=== PATIENT | male | born 1965 | race Caucasian/White ===

== ENCOUNTER 2025-07-16 23:33 | Emergency (ER) | payer OTHER, SELFPAY ==
[2025-07-16 23:37] VITALS: PULSE 93
[2025-07-16 23:38] VITALS: BP 103/66; PULSE 92; PULSE 96; TEMP 37.5; O2SAT 97; BMI 29.8
[2025-07-16 23:40] VITALS: BP 103/66; PULSE 96; O2SAT 97
--- NOTE | 2025-07-16 23:47 | ECG_ITS ---
[facility] Test Date: 2025-07-16 Pat Name: FIDEL DEE Department: Room: - Gender: Male Methods And Procedures Analyst: : 1965 Requested By: [id number] Order Number: [id number] Reading MD: DARRICK SHAVER Measurements Intervals [place] Rate: 92 P: 30 ND: 128 QRS: 38 QRSD: 100 T: 50 QT: 370 QTc: 419 Interpretive Statements 1100 Sinus rhythm 2420 RSR (QR) in lead V1/V2, consistent with right ventricular conduction delay 9130 borderline ECG No previous ECG available for comparison Electronically Signed On 07-20-2025 13:30:54 EDT by DARRICK SHAVER
--- NOTE | 2025-07-16 23:48 | ED.SYNCOPE1 ---
HPI - Syncope General Chief Complaint: Syncope Stated Complaint: Syncope Time Seen by Provider: 07/16/25 23:46 Source: patient Mode of arrival: ambulance Limitations: no limitations History of Present Illness HPI narrative: history of autoimmune hepatitis. Managed at [facility]. Recent flare and states he was started on prednisone. ill today with rigor type chills.Tonight preparing to go up stairs to bed and became weak . states she ran up to him at the stair way where he was standing and not moving. she lowered him to the ground. He woke up after about one minute and was very diaphoretic and vomited. Squad arrived and BP systolic 50. Treated with IV fluids and transferred here. Arrives with BP 103/66. No complaint at this time. Feels much better than he did at home. No chest pain, abdominal pain or dyspnea Related Data Home Medications ?Medication ?Instructions ?Recorded ?Confirmed prednisone 20 mg tablet 40 mg PO DAILY 07/16/25 07/16/25 Allergies Allergy/AdvReac Type Severity Reaction Status Date / Time No Known Drug Allergies Allergy Verified 07/16/25 23:46 Review of Systems ROS Status of ROS 10 or more systems reviewed and unremarkable except as noted in history and below PFSH PFSH Social History Little interest or pleasure in doing things: not at all Feeling down, depressed, or hopeless: not at all Exam Constitutional Vital Signs, click to edit/add: Last Vital Signs Temp 98.9 F 07/17/25 03:40 Pulse 108 H 07/17/25 04:45 Resp 20 07/17/25 04:45 BP 130/83 07/17/25 04:45 Pulse Ox 95 07/17/25 04:45 O2 Del Method Room Air 07/17/25 03:40 Common normals: no apparent distress, average body habitus, oriented x3, no limitations, healthy appearing, alert and well nourished [facility] Common normals: normocephalic and head/scalp atraumatic Eye Common normals: PERRL and EOMs intact bilaterally Respiratory Common normals: normal respiratory effort, no retractions, no use of accessory muscles and clear to auscultation bilaterally Cardio Common normals: regular rate, regular rhythm, S1 normal heart sound and S2 normal heart sound GI Common normals: Normal to inspection, nondistended, normoactive bowel sounds present, soft to palpation and non-tender Extremity Common normals: normal to inspection and full ROM Neuro Common normals: oriented x3, CN's II-XII intact bilaterally, moves all extremities and no focal motor deficits Psych Appearance: grossly normal Course Vital Signs Vital signs: Vital Signs Pulse Rate 93 H 07/16/25 23:37 Respiratory Rate 16 07/16/25 23:37 Temperature 98.9 F 07/17/25 03:40 Pulse Rate 108 H 07/17/25 04:45 Respiratory Rate 20 07/17/25 04:45 Blood Pressure 130/83 07/17/25 04:45 Pulse Oximetry 95 07/17/25 04:45 Oxygen Delivery Method Room Air 07/17/25 03:40 MDM - Syncope MDM Narrative Medical decision making narrative: history of autoimmune hepatitis. Recent flare manifested by elevated T. bili and jaundice. Started on Prednisone 40mg daily which he has been on for past week. At home experienced episodes of Rigors. Uncontrollable shaking chills. Was planning to go upstairs to bed. Got to the stairway and was just standing there. came over and found blank stare on his face and help lower him to the ground. He was unresponsive for about 1 minute. Woke up and was diaphoretic and vomited. Squad found BP 50/30. IVF administered and patient did respond to fluids and by the time he arrived here his BP systolic was 103. Additional IVF ordered but despite this his BP systolic decreased to 70/40. Blood cultures ordered. Norepinephrine drip started at 8mcg. Patient also given Vanco and Zosyn to cover for expected sepsis. Latic acid elevated at 4.0. UA returned without evidence of infection. Cxray with cardiomegaly but no infiltrates. T. Bili 8.7. AST 113 and ALT normal at 55. Alk phos 198. He is also intoxicated with ETOH 174. No outward sign of intoxication. He is cooperative with clear speech. INR pending. Discussed with hospitalist Dr Pizarro here at [facility] and he feels the patient needs to be transferred. Hospitalist at [facility] paged Discussed with sheet music salesperson and patient accepted in transfer Lab Data Labs: Lab Results 07/16/25 07/17/25 07/17/25 Range/Units 23:50 02:50 03:51 WBC 6.1 (4.0-11.0) 10^3/uL RBC 3.37 L (4.70-6.10) 10^6/uL Hgb 11.2 L (14.0-18.0) g/dL Hct 33.4 L (42.0-54.0) % MCV 99.1 H (80.0-94.0) fL MCH 33.2 (25.9-34.0) pg MCHC 33.5 (29.9-35.2) g/dL RDW 15.2 H (11.0-15.0) % Plt Count 78 L (150-450) 10^3/uL MPV 11.4 (9.5-13.5) fL Seg Neuts % (Manual) 91.0 H (43.0-75.0) Band Neutrophils % 2.0 (0-5) % Lymphocytes % (Manual) 5.0 L (20.5-60.0) % Monocytes % (Manual) 2.0 (1.7-12.0) % Eosinophils % (Manual) 0.0 L (0.9-7.0) % Basophils % (Manual) 0.0 L (0.2-2.0) % Neutrophils # (Manual) 5.55 (1.4-6.5) 10^3/uL Band Neutrophils # 0.1 (0.0-0.3) 10^3/uL Lymphocytes # (Manual) 0.30 L (1.20-3.80) 10^3/uL Monocytes # (Manual) 0.12 L (0.30-0.80) 10^3/uL Eosinophils # (Manual) 0.00 (0.00-0.70) 10^3/uL Basophils # (Manual) 0.00 (0.00-0.10) 10^3/uL Sodium 141 (136-145) mmol/L Potassium 3.1 L (3.5-5.1) mmol/L Chloride 105 (98-107) mmol/L Carbon Dioxide 22.0 (21.0-32.0) mmol/L Anion Gap 17.1 BUN 15.0 (7.0-18.0) mg/dL Creatinine 0.98 (0.70-1.30) mg/dL Est GFR ( Amer) >60 (>=60 mL/min/1.73m^2) Est GFR (Non-Af Amer) >60 (>=60 mL/min/1.73m^2) BUN/Creatinine Ratio 15.3 Glucose 81 (74-106) mg/dL Lactate 4.0 H* 3.9 H* (0.4-2.0) mmol/L Calcium 7.8 L (8.5-10.1) mg/dL Total Bilirubin 8.7 H (0.2-1.0) mg/dL AST 113 H (15-37) U/L ALT 55 (16-63) U/L Alkaline Phosphatase 198 H (46-116) U/L Troponin I High Sens 37.8 (4.0-76.1) pg/mL Total Protein 5.9 L (6.4-8.2) g/dL Albumin 2.6 L (3.4-5.0) g/dL Globulin 3.3 g/dL Albumin/Globulin Ratio 0.8 Urine Color Dk orange A (YELLOW) Urine Clarity Clear (CLEAR) Urine pH 5.5 (5.0-9.0) Ur Specific [place] <=1.005 A (1.005-1.025) Urine Protein Trace (NEG/TRACE) mg/dL Urine Glucose (UA) Negative (NEGATIVE) mg/dL Urine Ketones Trace A (NEGATIVE) mg/dL Urine Occult Blood Negative (NEGATIVE) Urine Nitrite Negative (NEGATIVE) Urine Bilirubin Moderate A (NEGATIVE) Urine Urobilinogen 1.0 (0.2-1.0) EU/dL Ur Leukocyte Esterase Negative (NEGATIVE) Urine RBC None seen (0-2) #/HPF Urine WBC 2-5 A (NONE SEEN) #/HPF Ur Squamous Epith Cells Rare (NONE/RARE) #/LPF Urine Crystals None seen (None Seen) #/HPF Urine Bacteria Trace A (NONE SEEN) #/HPF Urine Casts Seen A (NONE SEEN) #/LPF Hyaline Casts Few Urine Mucus None seen (NONE SEEN) Ur Culture Indicated? No Ethanol Quant 174 mg/dL Discharge Plan Discharge Chief Complaint: Syncope Clinical Impression: Syncope, Sepsis, Autoimmune hepatitis Patient Disposition: General Acute Hospital
[2025-07-16 23:50] VITALS: PULSE 98; O2SAT 98
[2025-07-17] VITALS (75 sets, daily range): BP systolic 70–145; BP diastolic 40–99; PULSE 93–126; TEMP 37–37.2; O2SAT 91–98
[2025-07-17 00:19] LABS: Hematocrit 33.4 % (42.0-54.0); Hemoglobin 11.2 g/dL (14.0-18.0); Mean Corpuscular HGB Conc 33.5 g/dL (29.9-35.2); Mean Corpuscular Hemoglobin 33.2 pg (25.9-34.0); Mean Corpuscular Volume 99.1 fL (80.0-94.0); Platelet Count 78 10^3/uL (150-450); Red Blood Count 3.37 10^6/uL (4.70-6.10); White Blood Count 6.1 10^3/uL (4.0-11.0)
[2025-07-17 00:31] LABS: Alanine Aminotransferase 55 U/L (16-63); Albumin Globulin Ratio 0.8; Albumin Level 2.6 g/dL (3.4-5.0); Alkaline Phosphatase 198 U/L (46-116); Anion Gap 17.1; Aspartate Amino Transferase 113 U/L (15-37); Blood Urea Nitrogen 15.0 mg/dL (7.0-18.0); Calcium 7.8 mg/dL (8.5-10.1); Carbon Dioxide 22.0 mmol/L (21.0-32.0); Chloride 105 mmol/L (98-107); Estimated GFR (African America >60 (>=60 mL/min/1.73m^2); Estimated GFR (Non-African Ame >60 (>=60 mL/min/1.73m^2); Globulin 3.3 g/dL; Glucose 81 mg/dL (74-106); Potassium 3.1 mmol/L (3.5-5.1); Sodium 141 mmol/L (136-145)
[2025-07-17 00:38] LABS: Total Protein 5.9 g/dL (6.4-8.2)
[2025-07-17 00:39] LABS: Lactate/Lactic Acid 4.0 mmol/L (0.4-2.0)
[2025-07-17 00:48] LABS: Basophils Abs Manual 0.00 10^3/uL (0.00-0.10); Basophils Percent Manual 0.0 % (0.2-2.0); Eosinophils Absolute Manual 0.00 10^3/uL (0.00-0.70); Eosinophils Percent Manual 0.0 % (0.9-7.0); Lymphocytes Absolute Manual 0.30 10^3/uL (1.20-3.80); Lymphocytes Percent Manual 5.0 % (20.5-60.0); Monocytes Absolute Manual 0.12 10^3/uL (0.30-0.80); Monocytes Percent Manual 2.0 % (1.7-12.0)
[2025-07-17 00:49] LABS: Band Neutrophils Absolute 0.1 10^3/uL (0.0-0.3); Segmented Neut Absolute Manual 5.55 10^3/uL (1.4-6.5); Segmented Neutrophils % Manual 91.0 (43.0-75.0)
[2025-07-17] MEDS: 0.9 % SODIUM CHLORIDE 1,000 ML 999 ML IV ×2 (00:49→02:43)
[2025-07-17] MEDS: NOREPINEPHRINE BITARTRATE/D5W 4 MG/250 ML PREMIX 30 MG IV (02:43)
[2025-07-17] MEDS: PIPERACILLIN SODIUM/TAZOBACTAM 3.375 GM in 0.9 % SODIUM CHLORIDE 50 ML IV (03:10)
[2025-07-17 03:21] LABS: Lactate/Lactic Acid 3.9 mmol/L (0.4-2.0)
[2025-07-17 04:13] LABS: Glucose Urine UA NEGATIVE (NEGATIVE)
[2025-07-17 04:22] LABS: Cast Seen? SEEN #/LPF (NONE SEEN); Crystals Seen? None Seen #/HPF (None Seen)
[2025-07-17] MEDS: VANCOMYCIN HCL 1,500 MG in 0.9 % SODIUM CHLORIDE 500 ML 250 MG IV (04:22)
[2025-07-17 04:23] LABS: Urine Culture Indicated NO
[2025-07-17 06:43] LABS: INR 1.30; Prothrombin Time 13.4 sec (9.0-11.6)
[2025-07-17 07:44] LABS: Hematocrit 31.9 % (42.0-54.0); Hemoglobin 10.8 g/dL (14.0-18.0)
[2025-07-17 07:57] LABS: Anion Gap 19.8; Blood Urea Nitrogen 15.0 mg/dL (7.0-18.0); Calcium 7.5 mg/dL (8.5-10.1); Carbon Dioxide 17.9 mmol/L (21.0-32.0); Chloride 107 mmol/L (98-107); Estimated GFR (African America >60 (>=60 mL/min/1.73m^2); Estimated GFR (Non-African Ame >60 (>=60 mL/min/1.73m^2); Glucose 105 mg/dL (74-106); Magnesium 1.0 mg/dL (1.8-2.4); Potassium 3.7 mmol/L (3.5-5.1); Sodium 141 mmol/L (136-145)
[2025-07-17] MEDS: 0.9 % SODIUM CHLORIDE 1,000 ML 1000 ML IV (08:34)
[2025-07-17] MEDS: MAGNESIUM SULFATE IN WATER 4 GM/100 ML PIGGYBACK IV (08:34)
[2025-07-17 08:53] LABS: PCO2 VBG 23.6 mmHg (40.0-52.0); pH VBG 7.440 (7.330-7.430)
[2025-07-17 09:13] LABS: Magnesium 1.1 mg/dL (1.8-2.4)
[2025-07-17 09:30] LABS: Lactate/Lactic Acid 5.2 mmol/L (0.4-2.0)
[2025-07-17 11:38] LABS: A. calcoaceticus-baumannii Cpx NOT DETECTED (NOT DETECTE); Bacteroides fragilis NOT DETECTED (NOT DETECTE); Candida auris NOT DETECTED (NOT DETECTE); Candida glabrata NOT DETECTED (NOT DETECTE); Enterobacterales NOT DETECTED (NOT DETECTE); Enterococcus faecalis NOT DETECTED (NOT DETECTE); Enterococcus faecium NOT DETECTED (NOT DETECTE); Klebsiella aerogenes NOT DETECTED (NOT DETECTE); Klebsiella pneumoniae group NOT DETECTED (NOT DETECTE); Proteus spp. NOT DETECTED (NOT DETECTE); Salmonella spp. NOT DETECTED (NOT DETECTE); Serratia marcescens NOT DETECTED (NOT DETECTE); Staphylococcus epidermidis NOT DETECTED (NOT DETECTE); Staphylococcus lugdunensis NOT DETECTED (NOT DETECTE); Stenotrophomonas maltophilia NOT DETECTED (NOT DETECTE); Streptococcus pyogenes NOT DETECTED (NOT DETECTE); Streptococcus spp. NOT DETECTED (NOT DETECTE)
[2025-07-17 13:04] LABS: mecA/C and MREJ (MRSA) NOT DETECTED (NOT DETECTE)
[2025-07-17 13:06] LABS: Source BLOOD; Staphylococcus spp. DETECTED (NOT DETECTE)
--- NOTE | 2025-07-17 13:45 | PC.NURSE ---
Positive blood culture received from lab. results faxed to [facility].
== END 2025-07-17 09:54 | disposition short-term general hospital (02) ==
PROVIDERS: Emergency Medicine; Emergency Provider Internal Medicine; PCP Family Medicine
DX: A41.9 Sepsis, unspecified organism (principal); K75.4 Autoimmune hepatitis; R55 Syncope and collapse; F10.129 Alcohol abuse with intoxication, unspecified; Y90.6 Blood alcohol level of 120-199 mg/100 ml
CPT/HCPCS: 36415; 71045; 80048; 80053; 80320; 81001; 82800; 83605; 83735; 84484; 85007; 85014; 85018; 85027; 85610; 87040; 87077; 87150; 87186; 93005; 96361; 96365; 96366; 96368; 99285; J2543; J3373; J3475

== ENCOUNTER 2025-08-15 10:44 | Outpatient (REF) | payer OTHER, SELFPAY ==
--- OUTSIDE RECORDS SUMMARY | 2025-08-08 11:00 | XMS_ITS | Encounter Summary ---
Author Organization [facility] Address [address], [address] [place] [address] Care Team Providers Care Budget Coordinator Name Role Phone Karolyn Cross MD Primary Care Provider [phone] Reason for Visit * Reason Comments Follow-Up from Hospital +blood cultures and liver failure Encounter Details Date Type Department Care Team (Late st Contact Info) Description 08/08/2025 11:00 AM EDT Office Visit [facility] Primary Care [address] [place] [address] [place] [id number] Karolyn Cross MD [address] [place] [address] [place] [phone] Heart murmur (Primary Dx); Autoimmune hepatitis (HCC); Hospital discharge follow-up; Spinal abscess (HCC); Receiving intravenous antibiotic treatment at home Social History Tobacco Use Types Packs/Day Years Used Date Smoking Tobacco: Never Smokeless Tobacco: Never Tobacco Cessation:Counseling Given: Not Answered Alcohol Use Standard Drinks/Week Comments Not Currently 12 (1 standard drink = 0.6 oz pu re alcohol) PHQ-2 Answer Date Recorded PHQ-9 Total Score 0 08/08/2025 Exercise Vital Sign Answer Date Recorde d On average, how many days pe r week do you engage in moderate to strenuous exercise (like a brisk walk)? 2 days 05/23/2025 On average, how many minutes do you engage in exercise at this level? 30 min 05/23/2025 PRAPARE - Transportation Answer Date Re corded In the past 12 months, has l ack of transportation kept you from medical appointments or from getting medications? No 05/2025 In the past 12 months, has l ack of transportation kept you from meetings, work, or from getting things needed for daily living? No 05/23/2025 Housing Stability Vital Sign Answer Cesar e Recorded In the last 12 months, was t here a time when you were not able to pay the mortgage or rent on time? No 08/08/2025 In the past 12 months, how m any times have you moved where you were living? 0 08/08/2025 At any time in the past 12 m [facility], were you homeless or living in a senior care (including now)? No 08/08/2025 Hunger Vital Sign Answer Date Recorded Within the past 12 months, y ou worried that your food would run out before you got the money to buy more. Never true 08/08/20 Within the past 12 months, t he food you bought just didn't last and you didn't have money to get more. Never true 08/08/2025 PRAPARE - Transportation Answer Date Re corded In the past 12 months, has l ack of transportation kept you from medical appointments or from getting medications? No 07/19 In the past 12 months, has l ack of transportation kept you from meetings, work, or from getting things needed for daily living? No 08/08/2025 [facility] Utilities Answer Date Recorded In the past 12 months has th e electric, gas, oil, or water company threatened to shut off services in your home? No 08/08/2025 Interpersonal Safety Domain Source: IP Abuse Scr eening Answer Date Recorded Physical abuse Denies 09/10/2024 Verbal abuse Denies 09/10/2024 Emotional abuse Denies 09/10/2024 Financial abuse Denies 09/10/2024 Sexual abuse Denies 09/10/2024 Sex and Gender Information Value Date Recorded Sex Assigned at Not on file Legal Sex Male 10:05 AM EDT Gender Identity Not on file Sexual Orientation Not on file documented as of this encounter Last Filed Vital Signs Vital Sign Reading Time Taken Comments Blood Pressure 124/76 08/08/2025 10:57 AM EDT Pulse 95 08/08/2025 10:57 AM EDT Temperature - - Respiratory Rate - - Oxygen Saturation 98% 08/08/2025 10:57 AM EDT Inhaled Oxygen Concentration - - Weight 104.3 kg (230 lb) 08/08/2025 10:57 AM EDT Height - - Body Mass Index 31.19 09/10/2024 6:38 AM EDT documented in this encounter Progress Notes * Karolyn Cross MD - 08/08/2025 11:08 AM EDT [facility] Primary Care Patient: Eddei Ro 59 y.o. male Date of Service: 08/08/25 Chief Complaint: Chief Complaint Patient presents with Follow-Up from Hospital +blood cultures and liver failure History of Present Illness The patient is in office for hospital follow-up. He was recently admitted to [facility] for concerns of septic shock. He was initially evaluated in the [place] ER then transferred to higherlevel of care. The patient had positive blood cultures, he also has a known history of autoimmune hepatitis which resulted in significant jaundice during his hospital admission. The source of the sepsis was not confirmed and considered to be likely secondary to open wounds/possible bacterial seeding from skin disruption. He was found to have a spinal abscess on imaging and was treated with IV antibiotics. The patient was admitted to the hospital 07/17 and the discharge 08/02. He continues on IV an tibiotics 3 times a day with IV PICC line and is following with infectious disease. The goal is to eventually transition him to oral antibiotics. He feels improved at this time however still notes continued pain in the spine he continues on tramadol. Allergies: Patient has no known allergies. Medication List: Current Outpatient Medications Medication Sig Dispense Refill folic acid (FOLVITE) 1 MG tablet Take 1 tablet by mouth daily furosemide (LASIX) 20 MG tablet Take 1 tablet by mouth daily lactulose (CHRONULAC) 10 GM/15ML solution Take 15 mLs by mouth as needed TID magnesium oxide (MAG-OX) 400 MG tablet Take 1 tablet by mouth daily spironolactone (ALDACTONE) 25 MG tablet Take 1 tablet by mouth daily traMADol (ULTRAM) 50 MG tablet Take 1 tablet by mouth every 6 hours as needed for Pain. omeprazole (PRILOSEC) 40 MG delayed release capsule Take 1 capsule by mouth daily 90 capsule 0 VITAMIN D PO Take by mouth daily No current facility-administered medications for this visit. Review of Systems See hpi Physical Exam Physical Exam Constitutional: Appearance: Well-developed. HENT: Head: Normocephalic. Right Ear: External ear normal. Left Ear: External ear normal. Cardiovascular: Rate and Rhythm: Normal rate and regular rhythm. Heart sounds: Normal heart sounds. murmur heard. Pulmonary: Effort: Pulmonary effort is normal. Breath sounds: Normal breath sounds. No wheezing. Musculoskeletal: General: Normal range of motion. Cervical back: Normal range of motion. Skin: General: Skin is warm. -Diffuse jaundice Neurological: Mental Status: Alert and oriented to person, place, and time. Psychiatric: Behavior: Behavior normal. Vitals: 08/08/25 1057 BP: 124/76 Pulse: 95 SpO2: 98% Assessment and Plan Septic shock, sepsis, spinal abscess, autoimmune hepatitis. Overall patient is improved at this time compared to previous. He is to continue current medications, IV antibiotics as directed. He will follow-up with gastroenterology for autoimmune hepatitis and follow-up with infectious disease for the spinal abscess. There is concern for possible need for intervention such as incision and drainage in the future if there is no significant improvement with current treatment options. Continue tramadol as directed. The patient still has his murmur as well, hewas evaluated by cardiology during his inpatient admission and a BRIAN was conducted. No significant valve disease or vegetations/endocarditis was seen at that time. Likely systolic flow murmur. documented in this encounter Plan of Treatment Upcoming Encounters Date Type Department Care Team (Late st Contact Info) Description 08/30/2025 1:45 PM EDT Office Visit [facility] [address] [place] [address] Chava Santos MD [address] [place] [address] F/U FOR SIRRHOSIS 09/06/2025 9:15 AM EDT Office Visit [address] [place] [phone] Karolyn Cross MD [address] [place] [address] [place] [phone] meds labs . documented as of this encounter Visit Diagnoses Diagnosis Heart murmur- Primary Undiagnosed cardiac murmurs Autoimmune hepatitis (HCC) Autoimmune hepatitis Hospital discharge follow-up Other follow-up examination Spinal abscess (HCC) Acute osteomyelitis, other specified site Receiving intravenous antibiotic treatment at home Encounter for long-term (current) use of antibiotics documented in this encounter Care Teams Budget Coordinator Relationship Specialty Start Date End Date Karolyn Cross MD [address] [place] [address] PCP - General Family Medicine 05/23/25 documented as of this encounter
--- OUTSIDE RECORDS SUMMARY | 2025-08-09 20:22 | XMS_ITS | Continuity of Care Document ---
Author Organization [facility] Address [address] [place] [address] Phone Care Team Providers Care Gear Roller Name Role Phone Karolyn Cross MD Primary Care Provider Mica Aquino Other Provider Unavailable Ailyn Ann DO Other Provider Chacorta Louie MD Other Provider Primo Majano DO Other Provider [phone] Sergei Masters DO Other Provider Berenice Moore HEART COORDINATOR Other Provider Arleth Correia HEART COORDINATOR-DINING CAR WAITER/WAITRESS-C Other Provider Андрей Stevens MD Admit Provider Андрей Stevens MD Other Provider Chilango Oliva MD Other Provider Magnolia Guillen APRN Other Provider Primo Perez MD Other Provider Tiffany Sheikh MD Other Provider Sergei Finch MD Other Provider Hua Stone DO Other Provider Marquita Kwon MD Other Provider Ekta Garcia MD Other Provider Zaire Dunn MD Other Provider [phone] Ghada Naylor RN Other Provider Unavailable Mynor Albert MD Other Provider Yonas Parisi MD Attending Provider Yonas Parisi MD Other Provider Sonali Maurice MD Other Provider Magalis Perez HEART COORDINATOR Other Provider Yael Bray DO Other Provider Gabriella Tory MD Other Provider JorgeL Archer MD Other Provider Shelley Gloria HEART COORDINATOR Other Provider Damon Lora MD Attending Provider Damon Lora MD Other Provider Jt Aguilar MD Attending Provider Jt Aguilar MD Other Provider Chilango Oliva MD Attending Provider [phone] Care Teams Visit Care Team Team Status: Active Member Role Status Dates Karolyn Cross MD Primary Care Provider Active Start: July 17, 2025 Mica Aquino Other Provider Active Start: July 17, 2025 Ailyn Ann DO Other Provider Active Start: July 17, 2025 Chacorta Louie MD Other Provider Active Start : July 17, 2025 Primo Majano DO Other Provider Active Start: July 17, 2025 Sergei Masters DO Other Provider Active Start: July 17, 2025 Berenice Moore APRN Other Provider Active St art: July 17, 2025 Arleth Correia APRN-DINING CAR WAITER/WAITRESS-C Other Provider Active Start: July 17, 2025 Андрей Stevens MD Admit Provider Active Start: A ugust 2024 Андрей Stevens MD Other Provider Active Start: A ugust 2024 Chilango Oliva MD Other Provider Active Start: July 17, 2025 Magnolia Guillen APRN [facility]- Other Provider Active Start: July 17, 2025 Primo Perez MD Other Provider Active Start: July 17, 2025 Tiffany Sheikh MD Other Provider Active St art: July 17, 2025 Sergei Finch MD Other Provider Active Start: A ugust 2024 Hua Stone , Other Provider Active Start: July 17, 2025 Marquita Kwon MD Other Provider Active Start: A ugust 2024 Ekta Garcia MD Other Provider Active Start: A ugust 2024 Zaire Dunn MD Other Provider Active Start: July 17, 2025 Ghada Naylor RN Other Provider Active Star t: July 17, 2025 Ghada Naylor RN Other Provider Active Star t: July 17, 2025 Mynor Albert MD Other Provider Active Start: ust 2024 Yonas Parisi MD Attending Provider Activ e Start: July 17, 2025 Yonas Parisi MD Other Provider Active Start: July 17, 2025 Sonali Maurice MD Other Provider Active Start: July 17, 2025 Magalis Perez APRN Other Provider Active Sta rt: July 17, 2025 Visit Care Team Team Status: Active Member Role Status Dates Karolyn Cross MD Primary Care Provider Active Start: July 24, 2025 Андрей Stevens MD Admit Provider Active Start: S jeremy 2024 Андрей Stevens MD Other Provider Active Start: S jeremy 2024 Chilango Oliva MD Other Provider Active Start: July 24, 2025 Mica Aquino Other Provider Active Start: July 24, 2025 Ailyn Ann DO Other Provider Active Start: July 24, 2025 Chacorta Louie MD Other Provider Active Start : July 24, 2025 Primo Majano DO Other Provider Active Start: July 24, 2025 Sergei Masters DO Other Provider Active Start: July 24, 2025 Berenice Moore APRN Other Provider Active St art: July 24, 2025 Arleth Correia HEART COORDINATOR-DINING CAR WAITER/WAITRESS-C Other Provider Active Start: July 24, 2025 Yael Bray , DO Other Provider Active Start: July 24, 2025 Gabriella Troy MD Other Provider Active Start: pt2024 Jorge L Archer MD Other Provider Active Start: S epmber 2024 Shelley Gloria , HEART COORDINATOR Other Provider Active St art: July 24, 2025 Damon Lora MD Attending Provider Active Start: July 24, 2025 Damon Lora MD Other Provider Active Start: July 24, 2025 Jt Aguilar MD Other Provider Active Start: 2024 Visit Care Team Team Status: Active Member Role Status Dates Karolyn Cross MD Primary Care Provider Active Start: July 31, 2025 Андрей Stevens MD Admit Provider Active Start: 2024 Андрей Stevens MD Other Provider Active Start: ep2024 Chilango Oliva MD Other Provider Active Start: July 31, 2025 Mica Aquino Other Provider Active Start: July 31, 2025 Ailyn Ann DO Other Provider Active Start: July 31, 2025 Chacorta Louie MD Other Provider Active Start : July 31, 2025 Primo Majano DO Other Provider Active Start: July 31, 2025 Sergei Masters DO Other Provider Active Start: July 31, 2025 Berenice Moore APRN Other Provider Active St art: July 31, 2025 Arleth Correia HEART COORDINATOR-DINING CAR WAITER/WAITRESS-C Other Provider Active Start: July 31, 2025 Yael Bray , DO Other Provider Active Start: July 31, 2025 Gabriella Troy MD Other Provider Active Start: pt2024 Jorge L Archer MD Other Provider Active Start: S eptember 2024 Shelley Gloria , HEART COORDINATOR Other Provider Active St art: July 31, 2025 Damon Lora MD Other Provider Active Start: July 31, 2025 Jt Aguilar MD Attending Provider Active Star t: July 31, 2025 Jt Aguilar MD Other Provider Active Start: Sonam luna 2024 Patient Care Team Team Status: Inactive Member Role Status Dates Chilango Oliva MD Attending Provider Active Sta rt: August 08, 2025 End: August 08, 2025 Chief Complaint and Reason for Visit Chief Complaint Admit Date Syncope July 17, 2025 11 :00am Syncope July 24, 2025 12:00am Syncope July 31, 2025 12:00am mssa bacteemia August 08, 2025 2:30pm Reason for Visit Admit Date Anemia July 17, 2025 11 :00am Autoimmune hepatitis July 17, 2025 1 1:00am Back pain July 17, 2025 11 :00am Cirrhosis of liver July 17, 2025 11 :00am Hepatitis July 17, 2025 11 :00am Impaired mobility and activities of natalia y living July 17, 2025 11:00am Jaundice July 17, 2025 11 :00am Scleral icterus July 17, 2025 11 :00am Acute kidney injury July 17, 2025 11 :00am Alcohol withdrawal July 17, 2025 11 :00am Bacteremia due to Staphylococcus July 17, 2025 11:00am Hepatic encephalopathy July 17, 2025 11:00am Hyponatremia July 17, 2025 11 :00am Hypotension July 17, 2025 11 :00am MSSA bacteremia July 17, 2025 11 :00am Septic shock July 17, 2025 11 :00am Syncope July 17, 2025 11 :00am Reason for Referral Referring Provider Name Referring Provider Address Referring Provider Phone Referral Date Requested Appointment Date Referral Reason Андрей Stevens [address] [facility] [address] Work Phone: Андрей Rodney [address] [facility] [address] Work Phone: Андрей Rodney [address] [facility] [address] Work Phone: You have b een scheduled for a follow up appointment for the following date and time, please call to reschedule if needed. You have b een scheduled for a follow up appointment for the following date and time, please call to reschedule if needed. You have b een scheduled for a follow up appointment for the following date and time, please call to reschedule if needed. Allergies, Adverse Reactions, Alerts Allergen Type Severity Reaction Last Updated Verified Status No Known Allergies Allergy Unknown July 17, 2025 12:41pm Yes Active Social History Smoking Status Status Start Date End Date Date of Observa tion Never smoked tobacco (finding) July 28, 2025 1:27pm Observation Status Observation Response Date of Response Legal Sex Male (finding) Sex Assigned At Male [birth year] Social History Assessments Assessment Value Date Recorded SDOH Follow up August 01, 2025 5:33pm Question Answer Date Recorded Has the SDOH screening changed since admission? N August 01, 2025 5:33pm Assessment Value Date Recorded SDOH Follow up July 29, 2025 4:53pm Question Answer Date Recorded Has the SDOH screening changed since admission? N July 29, 2025 4:53pm Problems Active Problems Medical Problem Onset Date Status Impaired mobility and activities of daily living Unknown Active Discitis of lumbar region Unknown Active Autoimmune hepatitis Unknown Active Anemia Unknown Active Back pain Unknown Active Hepatitis Unknown Active Jaundice Unknown Active Cirrhosis of liver Unknown Active Spinal epidural abscess Unknown Active Scleral icterus Unknown Active Inactive/Resolved Problems Medical Problem Onset Date Status Acute kidney injury Unknown Resolved Bacteremia due to Staphylococcus Unknown Resolved MSSA bacteremia Unknown Resolved Alcohol withdrawal Unknown Resolved Septic shock Unknown Resolved Hyponatremia Unknown Resolved Syncope Unknown Resolved Hypotension Unknown Resolved Hepatic encephalopathy Unknown Resolved Medications Medication Status Dose Units Route Directions Qty Days St art Date Stop Date End Date Instructions Adherence Prednisone 20 mg tablet Active 40 MG PO Daily July 17, 2025 12:00a m On Hold: Hold until you see your primary care doctor Unknown Omeprazole 20 mg capsule,del ayed release(DR/ EC) Active 20 MG PO Daily July 17, 2025 12:00a m Unknown Cefazolin 2 gram Recon Soln Active 2 GM IV Every 8 hours 90 30 2024 12:00a m Unknown Furosemide 20 mg Tablet Active 20 MG PO Daily at 0800 30 2024 12:00a m Unknown Lactulose 10 gram/15 mL Solution Active 20 GM PO Three times daily 473 2024 12:00a m Take the medication with a target of 2-3 bowel movements a day. Unknown Magnesium Oxide 400 mg (241.3 mg magnesium) Tablet Active 400 MG PO Daily 30 2024 12:00a m Unknown Rifaximin (Xifaxan) 550 mg Tablet Active 550 MG PO Twice daily 60 30 2024 12:00a m Unknown Spironolact one 25 mg Tablet Active 25 MG PO Daily 30 30 2024 12:00a m Unknown Tramadol 50 mg Tablet Active 50 MG PO Q6H as needed for Pain 16 4 2024 12:00a m Unknown Folic Acid 1 mg tablet Active 1 MG PO Daily 30 2024 12:00a m Unknown Relevant Diagnostic Tests and/or Laboratory Data Laboratory Results Test Collection Date/Time Result Date/Time Result Interpretation Reference Range Result Comment Performing Site Creatinine August 08, 2025 2:30pm August 09, 2025 7:39am 0.82 mg/dL 0.70-1.30 [facility] [id number] [address] [facility] [address] Estimated GFR (CKD-EPI) August 08, 2025 2:30pm August 09, 2025 7:39am > 60.0 mL/Min [facility] [id number] [address] [facility] [address] C-Reactive Protein, Quantitative August 08, 2025 2:30pm August 09, 2025 7:39am 3.9 mg/dL Above high normal 0.0-0.5 [facility] [id number] [address] [facility] [address] Pharmacy Creatinine Clearance (Chem August 08, 2025 2:30pm August 09, 2025 7:39am N/A [facility] [id number] [address] [place] [address] Vital Signs Vital Reading Result Reference Range Collection Date/Time Height 72 [in_i] August 01, 2025 3:23pm Weight 108.90 kg August 02, 2025 6:04am Body Temperature 98.1 [degF] 97.6-99.0 July 182024 12:00pm Heart Rate 83 /min 60-100 August 02, 2025 12:00pm Respiratory rate 16 /min 12-24 July 182024 12:00pm Oxygen saturation by Pulse oximetry 98 % 95-100 August 02, 2025 12:00pm BP Systolic 135 mm[Hg] 100-140 August 02, 2025 12:00pm BP Diastolic 79 mm[Hg] 60-100 August 02, 2025 12:00pm Inhaled oxygen flow rate 3 L[facility] 11:[facility]am Advance Directives Advance Directive Response Recorded Date/ Time Advance Directives No July 17, 2025 6:32am Insurance Providers Guarantor Eddie Ro Address [address] [facility] [address] Contact Info. Home Phone: Payer Policy Id Subscriber's Name Subscriber Id Effectiv e Date Expiration Date ANTHEM BC-EMPLOYEE NON-ER [id number] Encounters Encounter Location(s) Arrival/Admit Date Discharge/Depart Date Provider(s) Non-patient / Non-visit -[facility] July 17, 2025 11:00am Yonas Parisi MD Non-patient / Non-visit -[facility] July 24, 2025 12:00am Christin Diaz MD Non-patient / Non-visit -[facility] July 31, 2025 12:00am Jt Aguilar MD Departed Clinical -Lab [facility] August 08, 2025 2:30pm August 08, 2025 2:31pm Chilango Oliva MD Recent Diagnosis Onset Date Admit Date Anemia Unknown July 17 11:00am Autoimmune hepatitis Unknown June 11:00am Back pain Unknown July 17 11:00am Cirrhosis of liver Unknown July 17, 2025 11:00am Hepatitis Unknown July 17 11:00am Impaired mobility and activities of daily living Unknown July 17, 2025 11:00am Jaundice Unknown July 17 11:00am Scleral icterus Unknown July 17 11:00am Acute kidney injury Unknown July 17, 2025 11:00am Alcohol withdrawal Unknown July 17, 2025 11:00am Bacteremia due to Staphylococcus Unknown July 17, 2025 11:00am Hepatic encephalopathy Unknown July 172024 11:00am Hyponatremia Unknown July 17 11:00am Hypotension Unknown July 17 11:00am MSSA bacteremia Unknown July 17 11:00am Septic shock Unknown July 17 11:00am Syncope Unknown July 17 11:00am Assessments Diagnosis Onset Date Resolution Status Admit Date Anemia acute July 17 11:00am Autoimmune hepatitis acute Augu st 2024 11:00am Back pain acute July 17 11:00am Cirrhosis of liver acute July 17, 2025 11:00am Hepatitis acute July 17 11:00am Impaired mobility and activities of daily living acute Augus 2024 11:00am Jaundice acute July 17 11:00am Scleral icterus acute July 172024 11:00am Acute kidney injury resolved 2024 11:00am Alcohol withdrawal resolved July 17, 2025 11:00am Bacteremia due to Staphylococcus resolved July 17 11:00am Hepatic encephalopathy resolved Au 2024 11:00am Hyponatremia resolved July 17, 2025 11:00am Hypotension resolved July 17, 2025 11:00am MSSA bacteremia resolved July 172024 11:00am Septic shock resolved July 17, 2025 11:00am Syncope resolved July 17 11:00am Plan of Treatment Future Tests Future scheduled test information is unavailable Pending Tests Pending diagnostic test information is unavailable Future Visits Future appointment information is unavailable Referrals to Other Providers Reason for Referral Referral Start Date Provider Provider Contact Information Provider Address You have been scheduled for a follow up appointment for the following date and time, please call to reschedule if needed. Chava Santos Dr. Work Phone: [facility] [address] [place] [phone] You have been scheduled for a follow up appointment for the following date and time, please call to reschedule if needed. Chilango Oliva MD Work Phone: [address] [place] [phone] You have been scheduled for a follow up appointment for the following date and time, please call to reschedule if needed. Karolyn Cross MD Work Phone: [address] [place] [address] [address] [facility] [address] Future Procedures Procedure Name Ordered Date Scheduled Date Initiate Home Health August 02, 2025 3:47pm 1 Days Diet Supplement July 22, 2025 1:01pm [facility] 2024 1:01pm Diet Supplement July 22, 2025 1:01pm [facility] 2024 1:01pm PICC Line Insertion Consult July 25, 2025 9:53am July 25, 2025 9:53am Admit Status Order July 17, 2025 12:22pm Aug ust 2024 12:22pm Discharge Order August 02, 2025 3:55pm Sept ember 2024 3:55pm Consult to Gastroenterology July 25, 2025 11:32am July 25, 2025 11:32am Consult to Infectious Diseases July 17, 2025 12:28pm July 17, 2025 12:28pm Consult to Nephrology July 28 10:11am July 28, 2025 10:11am Consult to Neurology July 17, 2025 12:28pm A ugust 2024 12:28pm Consult to Neurosurgery August 02, 2025 11:44am August 02, 2025 11:44am Consult to Physiatry July 27 12:25pm July 27, 2025 12:25pm Future Medications Future medication information is unavailable Patient Instructions Instruction Admit Date Cefazolin Know your Meds Drugs, Alcohol & Your Well-Being July 17, 2025 11:00am
--- OUTSIDE RECORDS SUMMARY | 2025-08-15 10:46 | XMS_ITS ---
Author Organization [facility] Address [address], [address] [place] [address] Care Team Providers Care Returned Goods Receiving Clerk Name Role Phone Karolyn Cross MD Primary Care Provider [phone] Care Transitions Status:Enrolled (Active) Start date:07/20/2025 Enrollment date:08/12/2025 Enrollment reason:Discharged from inpatient Current support & services provided:Inpatient Related social drivers of health:Social Connections, Financial Resource Strain Overview Jihan Martini RN [phone] Case Team Name Relationship Phone Jihan Martini RN(Responsible Staff) District Captain Manager [phone] Continued Care and Services Coordination
--- OUTSIDE RECORDS SUMMARY | 2025-08-15 10:46 | XMS_ITS | Encounter Summary ---
Author Organization [facility] Address [address] [facility] [address], [address] [place] [address] Care Team Providers Care Scrap Sorter Name Role Phone Karolyn Cross MD Primary Care Provider [phone] Encounter Details Date Type Department Care Team (Latest Contact Info) Description 08/02/2025 Care Coordination [facility] Population Care Jihan Martini RN Episode status: Enrolled (Care Transitions) Social History Tobacco Use Types Packs/Day Years Used Date Smoking Tobacco: Never Smokeless Tobacco: Never Alcohol Use Standard Drinks/Week Comments Yes 12 (1 standard drink = 0.6 oz pu re alcohol) [facility] Utilities Answer Date Recorded In the past 12 months has th e electric, gas, oil, or water company threatened to shut off services in your home? No 05/23/2025 PHQ-2 Answer Date Recorded PHQ-9 Total Score 0 05/23/2025 Exercise Vital Sign Answer Date Recorde d On average, how many days pe r week do you engage in moderate to strenuous exercise (like a brisk walk)? 2 days 05/23/2025 On average, how many minutes do you engage in exercise at this level? 30 min 05/23/2025 Hunger Vital Sign Answer Date Recorded Within the past 12 months, y ou worried that your food would run out before you got the money to buy more. Never true 05/23/20 25 Within the past 12 months, t he food you bought just didn't last and you didn't have money to get more. Never true 05/23/2025 PRAPARE - Transportation Answer Date Re [...] the mortgage or rent on time? No 05/23/2025 In the past 12 months, how m any times have you moved where you were living? 0 05/23/2025 At any time in the past 12 m [facility], were you homeless or living in a prison (including now)? No 05/23/2025 Food Insecurity Answer Date Recorded Within the past 12 months, y ou worried that your food would run out before you got the money to buy more. 1 05/23/2025 Within the past 12 months, t he food you bought just didn't last and you didn't have money to get more. 1 05/23/2025 Interpersonal Safety Domain Source: IP Abuse Scr [...] on file documented as of this encounter Plan of Treatment Upcoming Encounters Date Type Department Care Team (Late st Contact Info) Description 08/30/2025 1:45 PM EDT Office Visit [facility] [address] [place] [address] Chava Santos MD [address] [place] [address] F/U FOR SIRRHOSIS 09/06/2025 9:15 AM EDT Office Visit [facility] [address] [place] [address] [place] [id number] Karolyn Cross MD [address] [place] [address] [place] [phone] meds labs . documented as of this encounter Visit Diagnoses Not on filedocumented in this encounter Care Teams Scrap Sorter Relationship Specialty Start Date End Date Karolyn Cross MD [address] [id number] PCP - General Family Medicine 05/23/25 documented as of this encounter
--- OUTSIDE RECORDS SUMMARY | 2025-08-15 10:46 | XMS_ITS | Clinical Summary ---
Author Organization [facility] Address [address] [facility] [address], [address] [place] [address] Care Team Providers Care [employer] Name Role Phone Karolyn Cross MD Primary Care Provider [phone] Allergies No known active allergies Medications VITAMIN D PO Take by mouth daily Active folic acid (FOLVITE) 1 MG tablet Take 1 tablet by mouth daily 5 Active furosemide (LASIX) 20 MG tablet Take 1 tablet by mouth daily 5 Active lactulose (CHRONULAC) 10 GM/15ML solution Take 15 mLs by mouth as needed TID 5 Active magnesium oxide (MAG-OX) 400 MG tablet Take 1 tablet by mouth daily 5 Active spironolactone (ALDACTONE) 25 MG tablet Take 1 tablet by mouth daily 5 Active traMADol (ULTRAM) 50 MG tablet Take 1 tablet by mouth every 6 hours as needed for Pain. 5 Active omeprazole (PRILOSEC) 40 MG delayed release capsule Take 1 capsule by mouth daily 90 capsule 5 11/06/20 25 Active acetaminophen (TYLENOL) 500 MG tablet Take 1 tablet by mouth every 6 hours as needed for Pain 08/08/20 25 Discontinu ed(LIST CLEANUP) atorvastatin (LIPITOR) 20 MG tablet Take 1 tablet by mouth daily 08/08/20 25 Discontinu ed(LIST CLEANUP) omeprazole (PRILOSEC) 40 MG delayed release capsule Take 1 capsule by mouth daily 08/08/20 25 Discontinu ed(REORDER ) predniSONE (DELTASONE) 20 MG tablet Take 2 tablets by mouth daily 60 tablet 1 08/08/20 25 Discontinu ed(LIST CLEANUP) Active Problems Problem Noted Date Diagnosed Date Subcutaneous mass of right thumb 05/10/2024 Carpal tunnel syndrome of right wrist 05/10/2024 History of colon polyps 05/02/2023 Primary osteoarthritis of right knee 10/22/2022 Primary osteoarthritis of left knee 04/24/2021 Resolved Problems Problem Noted Date Diagnosed Date Resolved Date Screen for colon cancer 05/02/202305/17 Encounters Date Type Department Care Team Description 08/12/2025 Care Coordination [facility] Care Jihan Martini RN Episode status: Enrolled (Care Transitions) 08/09/2025 Care Coordination [facility] Care Jihan Martini RN Episode status: Enrolled (Care Transitions) 08/08/2025 11:00 AM EDT Office Visit [address] [place], [place] [id number] Karolyn Cross MD Heart murmur (Primary Dx); Autoimmune hepatitis (HCC); Hospital discharge follow-up; Spinal abscess (HCC); Receiving intravenous antibiotic treatment at home 08/05/2025 Care Coordination [facility] Care Jihan Martini RN Episode status: Enrolled (Care Transitions) 08/03/[address] [place] [address] Karolyn Cross MD Home Health 08/02/2025 Care Coordination [facility] Care Jihan Martini RN Episode status: Enrolled (Care Transitions) 08/01/2025 Care Coordination [facility] Jihan Ramirez RN 07/29/2025 Care Coordination [facility] Care Jihan Martini RN Episode status: Enrolled (Care Transitions) 07/25/2025 Care Coordination [facility] Jihan Ramirez RN Episode status: Enrolled (Care Transitions) 07/20/[address] [place] [address] Karolyn Cross MD 07/20/2025 Care Coordination [facility] Care Jihan Martini RN Episode status: Enrolled (Care Transitions) 07/16/2025 8:32 AM EDT - 07/16/2025 11:59 PM EDT Hospital Encounter [address] [address] Autoimmune hepatitis (HCC) Discharge Disposition: Home or Self Care 07/08/2025 9:00 AM EDT - 07/10/2025 11:59 PM EDT Hospital Encounter [address] [address] Autoimmune hepatitis (HCC) Discharge Disposition: Home or Self Care 07/06/2025 7:26 AM EDT - 07/06/2025 11:59 PM EDT Hospital Encounter [address] [address] Autoimmune hepatitis (HCC) Discharge Disposition: Home or Self Care 07/05/2025 2:45 PM EDT Office Visit [facility] Gastroenterology [address] [place] [address] Chava Santos MD Autoimmune hepatitis (HCC) (Primary Dx); Jaundice 06/14/2025 Results Follow-Up [facility] [address] [place] [address] [place] [address] Karolyn Cross MD 06/13/2025 7:53 AM EDT - 06/13/2025 11:59 PM EDT Hospital Encounter [address] [address] Need for hepatitis C screening test; Screening for HIV without presence of risk factors; Autoimmune hepatitis (HCC) Discharge Disposition: Home or Self Care 05/23/2025 9:00 AM EDT Office Visit [facility] [address] [place] [address] [place] [address] Karolyn Cross MD Elevated liver function tests (Primary Dx); Autoimmune hepatitis (HCC); Prediabetes; Screening for HIV without presence of risk factors; Need for hepatitis C screening test; Gastroesophageal reflux disease without esophagitis; Heart murmur from Last 3 Months Immunizations Immunization Administration Dates Next Due COVID-19, Inactive, MODERNA BLUE border, Primary or Immunocompromised, (age 12y+) 02/27/2021,01/30/2021 COVID-19, [place] Vaccine, Vaccine Unspecified 2020 Influenza Whole 10/20/2012 Family History Medical History Relation Name Comments Cancer Mother Breast breast Crohn's Disease Sister Vanessa Relation Name Status Comments Father Mother Breast Sister Vanessa Alive Social History Tobacco Use Types Packs/Day Years [...] any time in the past 12 m [facility], were you homeless or living in a longterm (including now)? No 08/08/2025 Hunger Vital Sign Answer Date Recorded Within the past 12 months, y ou worried that your food would run out before you got the money to buy more. Never true 08/08/20 25 Within the past 12 months, t [...] things needed for daily living? No 08/08/2025 [facility] Utilities Answer Date Recorded In the [...] on file Sexual Orientation Not on file Last Filed Vital Signs Vital Sign Reading Time Taken Comments Blood Pressure 124/76 08/08/2025 10:57 AM EDT Pulse 95 08/08/2025 10:57 AM EDT Temperature 36.3 C (97.4 F) 09/10/2024 8:38 AM EDT Respiratory Rate 17 09/10/2024 9:15 AM EDT Oxygen Saturation 98% 08/08/2025 10:57 AM EDT Inhaled Oxygen Concentration - - Weight 104.3 kg (230 lb) 08/08/2025 10:57 AM EDT Height 182.9 cm (6') 09/10/2024 6:38 AM EDT Body Mass Index 31.19 09/10/2024 6:38 AM EDT Plan of Treatment Upcoming Encounters Date Type Department Care Team (Late st Contact Info) Description 08/30/2025 1:45 PM EDT Office Visit [facility] Gastroenterology [address] [facility] [address] Chava Santos MD [address] [place] [id number] F/U FOR SIRRHOSIS 09/06/2025 9:15 AM EDT Office Visit [facility] [address] [place] [address] [address] [place], [place] [phone] Karolyn Cross MD [address] [place], [place] [id number] [facility] . Health Maintenance Due Date Last Done Comments DTaP/Tdap/Td vaccine (1 - Tdap) 1983 FIT/FOBT: Average risk 2009 Fecal-DNA (Cologuard): Average risk 2009 Sigmoidoscopy/CT colonography 2009 Pneumococcal 50+ years Vaccine (1 of 1 - PCV) 2014 Shingles vaccine (1 of 2) 2014 Flu vaccine (#1) 06/17/2025 10/20/2012 COVID-19 Vaccine (2024- season) 2025 09/12/2021, 02/27/2021, 01/30/2021 Colonoscopy 05/02/2026 05/02/2023, 04/17, 05/16/2022, Additional history exists Colorectal Cancer Screen 05/02/2026 Depression Screen 08/08/2026 08/08/2025, 08/08/2025 Diabetes screen 06/13/2028 06/13/2025, 07/29/2023 Lipids 04/28/2030 04/28/2025, 07/19, 07/29/2023, Additional history exists Respiratory Syncytial Virus (RSV) or age 60 yrs+ (1 - 1-dose 75+ series) 2039 HIV screen Completed 06/13/2025 Hepatitis C screen Completed 07/06/2025, 06/13/2025 Hepatitis A vaccine Aged Out No longe r eligible based on patient's age to complete this topic Hepatitis B vaccine Aged Out No longe r eligible based on patient's age to complete this topic Hib vaccine Aged Out No longer eligi ble based on patient's age to complete this topic Meningococcal (ACWY) vaccine Aged Out No longer eligible based on patient's age to complete this topic Meningococcal B vaccine Aged Out No l onger eligible based on patient's age to complete this topic Polio vaccine Aged Out No longer elig ible based on patient's age to complete this topic Medical Devices Implanted Type Area Front Office Attendant Device Identifier Shelf Expiration Date Model / Serial / Lot Component Fem Sz 6 L Knee Oxinium Cruce Ret Trell Legion Implanted:Qty: 1 on 04/24/2021 by Sam Starr MD at [facility] Left: Knee [employer]- 08/13/2030 [id number] / / [id number] Component Pat Abu81id Thk9mm Knee Ovl Resurf Gen Ii Legion Implanted:Qty: 1 on 04/24/2021 by Sam Starr MD at [facility] Left: Knee [employer]- 11/30/2029 [id number] / / [id number] Baseplate Tib Sz 6 Ap54mm Ml77mm Thk2.3mm L Knee Ti Ally Mass Spectrometry Manager Implanted:Qty: 1 on 04/24/2021 by Sam Starr MD at [facility] Left: Knee [employer]- 12/18/2030 [id number] / / [id number] Cement Bne 40gm Hi Visc Radpq For Rev Surg Implanted:Qty: 1 on 04/24/2021 by Sam Starr MD at [facility] Left: Knee [employer]- 06/16/2025 [id number] / / [id number] Cement Bne 40gm Hi Visc Radpq For Rev Surg Implanted:Qty: 1 on 04/24/2021 by Sam Starr MD at [facility] Left: Knee [employer]- 07/17/2025 [id number] / / [id number] Insert Tib Sz 5-6 Thk9mm Knee Xlpe Cruce Ret Hi Flx Legion Implanted:Qty: 1 on 04/24/2021 by Sam Starr MD at [facility] Left: Knee [employer]- 08/20/2030 [id number] / / [id number] Component Fem Sz 5 R Knee Oxinium Cruce Ret Trell Legion - [id number] Implanted:Qty: 1 on 10/22/2022 by Sam Starr MD at [facility] Right: Knee [employer]- 09/29/2031 [id number] / / [id number] Insert Tib Sz 5-6 [id number] Knee Xlpe Cruce Ret Hi Flx Legion - [id number] Implanted:Qty: 1 on 10/22/2022 by Sam Starr MD at [facility] Right: Knee [employer]-WD 07/08/2031 [id number] / / [id number] Cement Bne 40gm Hi Visc Radpq For Rev Surg - [id number] Implanted:Qty: 1 on 10/22/2022 by Sam Starr MD at [facility] Right: Knee [employer]-WD 11/16/2025 [id number] / / [id number] Cement Bne 40gm W/ Gent Hi Visc Radpq For Rev Surg - [id number] Implanted:Qty: 1 on 10/22/2022 by Sam Starr MD at [facility] Right: Knee [employer]-WD 10/16/2024 [id number] / / [id number] Baseplate Tib Sz 6 Ap54mm Ml77mm Thk2.3mm R Knee Ti Ally Mass Spectrometry Manager - [id number] Implanted:Qty: 1 on 10/22/2022 by Sam Starr MD at [facility] Right: Knee [employer]- 06/20/2029 [id number] / / [id number] Procedures Procedure Name Priority Date/Time Associated Diagnosis Comments COMPREHENSIVE METABOLIC PANEL Routine 07/16/2025 8:37 AM EDT Autoimmune hepatitis (HCC) US ABDOMEN LIMITED Routine 07/08/2025 9: 34 AM EDT Autoimmune hepatitis (HCC) HERPES PROFILE Routine 07/06/2025 7:40 AM EDT SHANELLE-MAHER VIRUS VCA ANTIBODY PANEL Routine 07/06/2025 7:40 AM EDT SMOOTH MUSCLE ANTIBODY QUANT Routine 07/06/2025 7:40 AM EDT CBC WITH AUTO DIFFERENTIAL Routine 07/06/2025 7:40 AM EDT Autoimmune hepatitis (HCC) PROTIME-INR Routine 07/06/2025 7:40 AM EDT Autoimmune hepatitis (HCC) IMMUNOGLOBULINS, QUANTITATIVE Routine 07/06/2025 7:40 AM EDT Autoimmune hepatitis (HCC) MANUEL Routine 07/06/2025 7:40 AM EDT Autoimmune hepatitis (HCC) LIVER-KIDNEY MICROSOME (LKM-1) ANTIBODY (IGG) Routine 07/06/2025 7:40 AM EDT Autoimmune hepatitis (HCC) CYTOMEGALOVIRUS ANTIBODY, IGG,IGM Routine 07/06/2025 7:40 AM EDT Autoimmune hepatitis (HCC) COMPREHENSIVE METABOLIC PANEL Routine 07/06/2025 7:40 AM EDT Autoimmune hepatitis (HCC) HEPATITIS B, QUANTITATIVE, MOLECULAR Routine 07/06/2025 7:40 AM EDT Autoimmune hepatitis (HCC) HEPATITIS PANEL, ACUTE Routine 7:40 AM EDT Autoimmune hepatitis (HCC) COMPREHENSIVE METABOLIC PANEL Routine 06/13/2025 7:58 AM EDT Autoimmune hepatitis (HCC) CBC WITH AUTO DIFFERENTIAL Routine 06/13/2025 7:58 AM EDT Autoimmune hepatitis (HCC) HEMOGLOBIN A1C Routine 06/13/2025 7:58 AM EDT Autoimmune hepatitis (HCC) HIV SCREEN Routine 06/13/2025 7:58 AM EDT Screening for HIV without presence of risk factors HEPATITIS C ANTIBODY Routine 06/13/2025 7:58 AM EDT Need for hepatitis C screening test [facility] SCREEN Routine 04/28/2025 6:48 AM EDT COLONOSCOPY PROCEDURE Routine 05/02/2023 8:16 AM EDT from Last 3 Months or Most Recently Relevant to Health Maintenance Results * (ABNORMAL) Comprehensive Metabolic Panel (07/16/2025 8:37 AM EDT) Only the most recent of3 resultswithin the time period is included. Sodium 142 136 - 145 mmol/L 07/16/2025 8:37 AM [facility] Potassium 3.7 3.7 - 5.3 mmol/L 07/16/2025 8:37 AM [facility] Chloride 106 98 - 107 mmol/L 07/16/2025 8:37 AM [facility] CO2 22 20 - 31 mmol/L 07/16/2025 8:37 AM [facility] Anion Gap 14 9 - 16 mmol/L 07/16/2025 8:37 AM [facility] Glucose 110(H) 74 - 99 mg/dL 07/16/2025 8:37 AM [facility] BUN 12 8 - 23 mg/dL 07/16/2025 8:37 AM [facility] Creatinine 0.7 0.70 - 1.20 mg/dL 07/16/2025 8:37 AM [facility] Comment:Specimen icterus has exceeded the interference as defined by Pierre. Result may be affected. Est, Glom Filt Rate >90 >60 mL/min/1.7 3m2 07/16/2025 8:37 AM [facility] Comment: These results are not intended for use in patients <18 years of age. eGFR results are calculated without a race factor using the 2020 CKD-EPI equation. Careful clinical correlation is recommended, particularly when comparing to results calculated using previous equations. The CKD-EPI equation is less accurate in patients with extremes of muscle mass, extra-renal metabolism of creatine, excessive creatine ingestion, or following therapy that affects renal tubular secretion. BUN/Creatinine Ratio 17 9 - 20 07/16/2025 8:37 AM [facility] Calcium 8.9 8.6 - 10.4 mg/dL 07/16/2025 8:37 AM EDT [facility] Total Protein 6.6 6.6 - 8.7 g/dL 07/16/2025 8:37 AM EDT [facility] Albumin 3.8 3.5 - 5.2 g/dL 07/16/2025 8:37 AM EDT [facility] Albumin/Globulin Ratio 1.4 1.0 - 2.5 07/16/2025 8:37 AM EDT [facility] Total Bilirubin 7.6(H) 0.00 - 1.20 mg/dL 07/16/2025 8:37 AM EDT [facility] Alkaline Phosphatase 222(H) 40 - 129 U/L 07/16/2025 8:37 AM EDT [facility] ALT 59(H) 10 - 50 U/L 07/16/2025 8:37 AM EDT [facility] AST 131(H) 10 - 50 U/L 07/16/2025 8:37 AM EDT [facility] Blood BLOOD SPECIMEN / Unknown 07/16/2025 8:37 AM EDT 07/16/2025 8:38 AM EDT Chava Santos MD CHEMISTRY ORDERABLES Final Re sult [facility] [address] [phone] * US ABDOMEN LIMITED (07/08/2025 9:34 AM EDT) Anatomical Region Laterality Modality Abdomen Ultrasound 07/08/2025 11:3 7 AM EDT Impressions 07/08/2025 11:37 AM EDT 1. No evidence of hepatocellular carcinoma or other acute abnormality. Narrative 07/08/2025 11:37 AM EDT EXAM: Right Upper Quadrant Abdominal Ultrasound 07/08/2025 09:34:57 AM TECHNIQUE: Real-time ultrasonography of the right upper quadrant of the abdomen was performed. COMPARISON: CT Abdomen Pelvis dated 02/13/2022. CLINICAL HISTORY: K75.4 - Autoimmune hepatitis (HCC). FINDINGS: LIVER: The liver demonstrates normal echogenicity. The liver length is 16.5 cm. No intrahepatic biliary ductal dilatation. No evidence of mass. BILIARY SYSTEM: The gallbladder is surgically absent. Negative sonographic Grover's sign. Common bile duct is within normal limits measuring 0.6 cm. RIGHT KIDNEY: The right kidney is grossly unremarkable in appearances without evidence of hydronephrosis or echogenic calculi, but a simple cyst is present measuring 1.9 x 1.0 x 1.2 cm. The right kidney dimensions are 12.0 x 5.3 x 6.5 cm. PANCREAS: Visualized portions of the pancreas are unremarkable. OTHER: No right upper quadrant ascites. Procedure Note Franklin Milton MD - 07/08/2025 EXAM: Right Upper Quadrant Abdominal Ultrasound 07/08/2025 09:34:57 AM TECHNIQUE: Real-time ultrasonography of the right upper quadrant of the abdomen wasperformed. COMPARISON: CT Abdomen Pelvis dated 02/13/2022. CLINICAL HISTORY: K75.4 - Autoimmune hepatitis (HCC). FINDINGS: LIVER: The liver demonstrates normal echogenicity. The liver length is 16.5 cm.No intrahepatic biliary ductal dilatation. No evidence of mass. BILIARY SYSTEM: The gallbladder is surgically absent. Negative sonographic Grover's sign. Common bile duct is within normal limits measuring 0.6 cm. RIGHT KIDNEY: The right kidney is grossly unremarkable in appearances without evidenceof hydronephrosis or echogenic calculi, but a simple cyst is presentmeasuring 1.9 x 1.0 x 1.2 cm. The right kidney dimensions are 12.0 x 5.3 x6.5 cm. PANCREAS: Visualized portions of the pancreas are unremarkable. OTHER: No right upper quadrant ascites. IMPRESSION: 1. No evidence of hepatocellular carcinoma or other acute abnormality. Chava Santos MD [facility] ORDERABLES Final Resul t * Hepatitis B, Quantitative, Molecular (07/06/2025 7:40 AM EDT) HBV IU/mL Not Detected IU/mL 07/06/2025 7:40 AM EDT [facility] HBV log 10 IU/mL Not Detected log IU/mL 07/06/2025 7:40 AM EDT [facility] Hep B PCR Interp Not Detected Not Detected 07/06/2025 7:40 AM EDT [facility] Comment: (NOTE) INTERPRETIVE INFORMATION: HBV by Quantitative NAAT The quantitative range of this test is 1.00-9.00 log IU/mL (10-1,000,000,000 IU/mL). An interpretation of Not Detected does not rule out the presence of inhibitors in the patient specimen or HBV DNA concentration below the level of detection of the test. Care should be taken when interpreting any single viral load determination. This test is intended for use as an aid in the management of patients with chronic HBV infection undergoing anti-viral therapy. The test can be used to measure HBV DNA levels at baseline and during treatment to aid in assessing response to treatment. Results must be interpreted within the context of all relevant clinical and laboratory findings. This assay should not be used for blood donor screening, associated reentry protocols, or for screening human cell, tissues, and cellular tissue-based products (HCT/P). Performed By: [facility] [address] [place] [address] Duplicating Machine Mechanic: Say Gee MD, PhD CLIA Number: [id number] Blood BLOOD SPECIMEN / Unknown 07/06/2025 7:40 AM EDT 07/06/2025 7:41 AM EDT us Chava Santos MD IMMUNOLOGY ORDERABLES Final R esult [facility] [address] [place], [place] [address] [phone] [facility] [address] [place], [place] [id number] [place] [address] * Immunoglobulins, Quantitative (07/06/2025 7:40 AM EDT) IgA, Total 272 68 - 408 mg/dL 07/06/2025 7:40 AM EDT [facility] Total IgG 1,070 768 - 1,632 mg/dL 07/06/2025 7:40 AM EDT [facility] IgM, Total 185 35 - 263 mg/dL 07/06/2025 7:40 AM EDT [facility] Comment: (NOTE) Performed By: [facility] [address] [place] [address] Duplicating Machine Mechanic: Say Gee MD, PhD CLIA Number: [id number] BLOOD SPECIMEN / Unknown 07/06/2025 7:40 AM EDT 07/06/2025 7:41 AM EDT Chava Santos MD CHEMISTRY ORDERABLES Final Re sult [facility] [address] [place], [place] [address] [phone] [facility] [address] [place] [address], [facility] [phone] * Cytomegalovirus Antibody, IgG,IgM (07/06/2025 7:40 AM EDT) CMV IgG <0.2 <0.5 07/06/2025 7:40 AM EDT [facility] Comment: Reference Range: <0.5 Non Reactive 0.5 to 0.9 Borderline >0.9 Reactive The absence of CMV antibodies suggests that the patient has not been exposed to the virus and is susceptible to primary infection. The presence of CMV IgG antibodies is indicative of previous exposure to the virus, but cannot distinguish between active or past infection. Patients suspected of having primary or active infection should be tested for the concurrent presence of CMV IgM antibodies and/or retested for seroconversion in 3 to 4 weeks. These results are not intended to replace virus isolation and should be interpreted within the context of clinical and other findings. CMV IgM 0.2 <0.7 07/06/2025 7:40 AM EDT [facility] Comment: Reference Range: <0.7 Non Reactive 0.7 to 0.9 Borderline >0.9 Reactive The absence of CMV antibodies suggests that the patient has not been exposed to the virus and is susceptible to primary infection. The presence of CMV IgM antibodies is indicative of recent exposure to the virus. These results are not intended to replace virus isolation and should be interpreted within the context of clinical and other findings. The Pierre ECLIA assay is used. Results obtained with different assay methods cannot be used interchangeably. BLOOD SPECIMEN / Unknown 07/06/2025 7:40 AM EDT 07/06/2025 7:41 AM EDT Chava Santos MD CHEMISTRY ORDERABLES Final Re sult Performing Organization Address City/[facility]/ZIP Co de Phone Number [facility] [address] [place] [address], [facility] [phone] [address], [facility] [phone] * Smooth Muscle Antibody Quant (07/06/2025 7:40 AM EDT) Smooth Muscle Ab 4 0 - 19 Units 07/06/2025 7:40 AM EDT [facility] Comment: (NOTE) If F-Actin (Smooth Muscle) Antibody, IgG is negative, the Smooth Muscle Antibody titer by IFA is not performed. REFERENCE INTERVAL: F-Actin (Smooth Muscle) Antibody, IgG by YVETTE 19 Units or less ....... Negative 20 - 30 Units .......... Weak Positive-Suggest repeat testing in two to three weeks with fresh specimen. 31 Units or greater..... Positive-Suggestive of autoimmune hepatitis type 1 or chronic active hepatitis. F-actin IgG antibodies have been shown to have increased sensitivity for autoimmune hepatitis (AIH) but lower specificity than smooth muscle antibodies (SMA). F-actin IgG antibodies can also be seen in SMA-negative disease controls (non-AIH), especially in patients with primary biliary cirrhosis and chronic hepatitis C infections. Some patients with AIH may be SMA-positive but negative for F-actin IgG. Consider testing for SMA by IFA if suspicion for AIH is strong. Performed By: [facility] [address] [place] [address] Duplicating Machine Mechanic: Say Gee MD, PhD CLIA Number: [id number] 07/06/2025 7:40 AM EDT 07/06/2025 7:41 AM EDT Chava Snatos MD LAB SEND OUT ORDERABLES Final Result Performing Organization Address City/[facility]/ZIP Co de Phone Number [facility] [address] [place] [address], [facility] [phone] [facility] [address] [place] [address] * Liver-Kidney Microsome (LKM-1) Ab (IgG) (07/06/2025 7:40 AM EDT) Liver-Kidney Microsome-1 Ab IgG 1.9 0.0 - 24.9 U 07/06/2025 7:40 AM EDT [facility] Comment: (NOTE) Specimen is icteric. Results may be adversely affected. REFERENCE INTERVAL: Liver-Kidney Microsome-1 Antibody, IgG by YVETTE 0.0 - 20.0 U .............. Negative 20.1 - 24.9 U ............. Equivocal 25.0 U or Greater ......... Positive A positive result indicates the presence of IgG antibodies to recombinant human P450 2D6 and suggests the possibility of autoimmune hepatitis, type 2. A negative LKM-1 does not rule out the presence of autoimmune hepatitis, type 2. Performed By: [facility] [address] [place] [address] Duplicating Machine Mechanic: Say Gee MD, PhD CLIA Number: [id number] BLOOD SPECIMEN / Unknown 07/06/2025 7:40 AM EDT 07/06/2025 7:41 AM EDT Chava Santos MD HEMATOLOGY ORDERABLES Final R esult [facility] [address] [place] [id number], [facility] [phone] [facility] [address] [place] [address] * (ABNORMAL) HERPES PROFILE (07/06/2025 7:40 AM EDT) Pathologist [facility] HSV 1 IgG 23.39(H) <0.91 07/06/2025 7:40 AM EDT [facility] Comment: Reference Range: <=0.90 Negative 0.91-1.09 Equivocal >=1.10 Positive HSV 2 IgG 0.57 <0.91 07/06/2025 7:40 AM EDT [employer] Comment: Reference Range: <=0.90 Negative 0.91-1.09 Equivocal >=1.10 Positive Herpes Type 1/2 IgM Combined 0.75 <0.91 07/06/2025 7:40 AM EDT [employer] Comment: Reference Range: <=0.90 Negative 0.91-1.09 Equivocal >=1.10 Positive If positive, an IgM result indicates a current or recent infection. This test does not differentiate type I from type II. No current reference test is available for this. If IgG tests are ordered and are negative, consider retesting in 2 to 3 weeks. 07/06/2025 7:40 AM EDT 07/06/2025 7:41 AM EDT us Chava Santos MD CHEMISTRY ORDERABLES Final Re sult [facility] [address] [place] [address], [facility] [phone] [place] [id number] [phone] * (ABNORMAL) CBC with Auto Differential (07/06/2025 7:40 AM EDT) Only the most recent of2 resultswithin the time period is included. WBC 5.3 3.5 - 11.3 k/uL 07/06/2025 7:40 AM [facility] RBC 3.75(L) 4.21 - 5.77 m/uL 07/06/2025 7:40 AM [facility] Hemoglobin 12.3(L) 13.0 - 17.0 g/dL 07/06/2025 7:40 AM [facility] Hematocrit 36.3(L) 40.7 - 50.3 % 07/06/2025 7:40 AM [facility] MCV 96.8 82.6 - 102.9 fL 07/06/2025 7:[facility] MCH 32.8 25.2 - 33.5 pg 07/06/2025 7:40 AM [facility] MCHC 33.9 28.4 - 34.8 g/dL 07/06/2025 7:40 AM [facility] RDW 14.9(H) 11.8 - 14.4 % 07/06/2025 7:40 AM [facility] Platelets 108(L) 138 - 453 k/uL 07/06/2025 7:40 AM [facility] MPV 12.0 8.1 - 13.5 fL 07/06/2025 7:40 AM [facility] NRBC Automated 0.0 0.0 per 100 WBC 07/06/2025 7:40 AM [facility] Neutrophils % 66(H) 36 - 65 % 07/06/2025 7:40 AM [facility] Lymphocytes % 13(L) 24 - 43 % 07/06/2025 7:40 AM [facility] Monocytes % 15(H) 3 - 12 % 07/06/2025 7:40 AM [facility] Eosinophils % 3 1 - 4 % 07/06/2025 7:40 AM [facility] Basophils % 2 0 - 2 % 07/06/2025 7:40 AM [facility] Immature Granulocytes % 1(H) 0 % 07/06/2025 7:40 AM [facility] Neutrophils Absolute 3.50 1.50 - 8.10 k/uL 07/06/2025 7:40 AM [facility] Lymphocytes Absolute 0.71(L) 1.10 - 3.70 k/uL 07/06/2025 7:40 AM [facility] Monocytes Absolute 0.81 0.10 - 1.20 k/uL 07/06/2025 7:40 AM [facility] Eosinophils Absolute 0.14 0.00 - 0.44 k/uL 07/06/2025 7:40 AM [facility] Basophils Absolute 0.11 0.00 - 0.20 k/uL 07/06/2025 7:40 AM EDT [facility] Immature Granulocytes Absolute 0.04 0.00 - 0.30 k/uL 07/06/2025 7:40 AM EDT [facility] Blood BLOOD SPECIMEN / Unknown 07/06/2025 7:40 AM EDT 07/06/2025 7:41 AM EDT us Chava Santos MD HEMATOLOGY ORDERABLES Final R esult [facility] [address] [phone] * (ABNORMAL) Shanelle-Maher virus VCA antibody panel (07/06/2025 7:40 AM EDT) EBV VCA,IgG 1153(H) <100 U/mL 07/06/2025 7:40 AM EDT [facility] [employer] EBV Nuclear Ag Ab 118(H) <100 U/mL 025 7:40 AM EDT [facility] [employer] EBV EA IgG 21 <100 U/mL 07/06/2025 7:40 AM EDT [facility] [employer] EBV VCA,IgM 45 <100 U/mL 07/06/2025 7:40 AM EDT [facility] [employer] EBV Interp. (NOTE) 07/06/2025 7:40 AM EDT [facility] [employer] Comment: Reference Range: Negative <100 U/mL Positive >120 U/mL Equivocal 100-120 U/mL Guidelines for the Interpretation of Shanelle-Maher Viral Serologies Antibodies Clinical Situation IgG-VCA EBNA EA IgM-VCA No past infection - - - - Acute infection + - + + Convalescent phase + + +/- +/- Past infection + + - - Chronic or reactivated + + + - infection + = Antibody present - = Antibody absent Reference: Clinical Diagnosis and Management by Laboratory Methods; 17th Edition, Miki Carreon M.D. 07/06/2025 7:40 AM EDT 07/06/2025 7:41 AM EDT Chava Santos MD IMMUNOLOGY ORDERABLES Final R esult Performing Organization Address City/[facility]/ZIP Co de Phone Number [facility] [address] [place] [address], [facility] [phone] [employer] [address] [place] [address], [facility] [phone] * Hepatitis Panel, Acute (07/06/2025 7:40 AM EDT) [facility] Hepatitis B Surface Ag NONREACTIVE NONREACTIVE 07/06/2025 7:40 AM EDT [facility] Hepatitis C Ab NONREACTIVE NONREACTIVE 07/06/20 7:40 AM EDT [facility] Comment: The hepatitis C procedure used in our laboratory is a Chemiluminescent test specific for three recombinant HCV antigens. A negative anti-HCV result indicates that the antibodies to hepatitis C virus are not present at this time. Individuals with reactive anti-HCV should be considered infected and infectious until proven otherwise. Confirmation of all equivocal or reactive results is recommended by ordering HCV RNA by PCR. Hep B Core Ab, IgM NONREACTIVE NONREACTIVE 06/18 7:40 AM EDT [facility] [employer] Hep A IgM NONREACTIVE NONREACTIVE 07/06/2025 7:40 AM EDT [facility] Blood BLOOD SPECIMEN / Unknown 07/06/2025 7:40 AM EDT 07/06/2025 7:41 AM EDT Chava Santos MD IMMUNOLOGY ORDERABLES Final R esult Performing Organization Address [facility]/ZIP Co de Phone Number [facility] [address] [place] [address], [facility] [phone] [facility] [employer] [address] [place] [address], [facility] [phone] * Protime-INR (07/06/2025 7:40 AM EDT) Protime 15.0 12.0 - 15.0 sec 07/06/2025 7:40 AM EDT [facility] INR 1.1 07/06/2025 7:40 AM EDT [facility] Comment: Therapeutic Range: Moderate Anticoagulant Intensity: INR = 2.0-3.0 High Anticoagulant Intensity: INR = 2.5-3.5 Blood BLOOD SPECIMEN / Unknown 07/06/2025 7:40 AM EDT 07/06/2025 7:41 AM EDT Chava Santos MD HEMATOLOGY ORDERABLES Final R esult Performing Organization Address City/[facility]/ZIP Co de Phone Number [facility] [address] [place] [address] * MANUEL (07/06/2025 7:40 AM EDT) [facility] MANUEL NEGATIVE NEGATIVE 07/06/2025 7:40 AM EDT [facility] DEAN Antibodies Screen 0.3 <0.7 U/mL 07/06/2025 7:40 AM EDT [facility] Comment: Reference Range: <0.7 Negative 0.7-1.0 Equivocal >1.0 Positive DEAN Screen includes U1RNP,RNP70,Sm,Ro(SS-A),La(SS-B),CENP,Scl-70,Anna-1 Anti ds DNA 2.0 <10.0 IU/mL 07/06/2025 7:40 AM EDT [facility] Comment: Reference Range: <10.0 Negative 10.0-15.0 Equivocal >15.0 Positive Blood BLOOD SPECIMEN / Unknown 07/06/2025 7:40 AM EDT 07/06/2025 7:41 AM EDT Chava Santos MD IMMUNOLOGY ORDERABLES Final R esult Performing Organization Address City/[facility]/ZIP Co de Phone Number [facility] [address] [place] [address] [facility] [address] [place] [address], [facility] [phone] * Hepatitis C Antibody (06/13/2025 7:58 AM EDT) Hepatitis C Ab NONREACTIVE NONREACTIVE 06/13/20 7:58 AM EDT [facility] [employer] Comment: The hepatitis C procedure used in our laboratory is a Chemiluminescent test specific for three recombinant HCV antigens. A negative anti-HCV result indicates that the antibodies to hepatitis C virus are not present at this time. Individuals with reactive anti-HCV should be considered infected and infectious until proven otherwise. Confirmation of all equivocal or reactive results is recommended by ordering HCV RNA by PCR. Blood BLOOD SPECIMEN / Unknown 06/13/2025 7:58 AM EDT 06/13/2025 7:59 AM EDT Karolyn Cross MD IMMUNOLOGY ORDERABLES Rosibel l Result Performing Organization Address [facility] Co de Phone Number [facility] [address] [place] [address] [address], [facility] [phone] * HIV Screen (06/13/2025 7:58 AM EDT) [facility] HIV Ag/Ab NONREACTIVE NONREACTIVE 06/13/2025 7:58 AM EDT [facility] Comment: No laboratory evidence of HIV infection. If acute HIV infection is suspected, consider testing for HIV-1 RNA. BLOOD SPECIMEN / Unknown 06/13/2025 7:58 AM EDT 06/13/2025 7:59 AM EDT Karolyn Cross MD IMMUNOLOGY ORDERABLES Rosibel l Result Performing Organization Address City/[facility]/ZIP Co de Phone Number [facility] [address] [place] [address], [facility] [phone] [address], [facility] [phone] * Hemoglobin A1C (06/13/2025 7:58 AM EDT) Hemoglobin A1C 4.4 4.0 - 6.0 % 06/13/2025 7:58 AM EDT [facility] Estimated Avg Glucose 80 mg/dL 06/13/2025 7:58 AM EDT [facility] Comment: The ADA and AACC recommend providing the estimated average glucose result to permit better patient understanding of their HBA1c result. Blood BLOOD SPECIMEN / Unknown 06/13/2025 7:58 AM EDT 06/13/2025 7:59 AM EDT us Karolyn Cross MD CHEMISTRY ORDERABLES Final Result [facility] [address] [place] [address], [facility] [phone] [facility] [address] [place] [address], [facility] [phone] * (ABNORMAL) [facility] Well [facility] Screen (04/28/2025 6:48 AM EDT) Glucose 87 74 - 99 mg/dL 04/28/2025 6:48 AM EDT [facility] Cholesterol, Total 235(H) 0 - 199 mg/dL 04/28/2025 6:48 AM EDT [facility] Comment: Cholesterol Guidelines: <200 Desirable 200-240 Borderline >240 Undesirable HDL 73 >40 mg/dL 04/28/2025 6:48 AM EDT [facility] Comment: HDL Guidelines: <40 Undesirable 40-59 Borderline >59 Desirable LDL Cholesterol 139(H) 0 - 100 mg/dL 04/28/2025 6:48 AM EDT [facility] Comment: LDL Guidelines: <100 Desirable 100-129 Near to/above Desirable 130-159 Borderline >159 Undesirable Direct (measured) LDL and calculated LDL are not interchangeable tests. Chol/HDL Ratio 3.2 <5.0 04/28/2025 6:48 AM EDT [facility] Triglycerides 113 <150 mg/dL 04/28/2025 6:48 AM EDT [facility] Comment: Triglyceride Guidelines: <150 Desirable 150-199 Borderline 200-499 High >499 Very high Based on AHA Guidelines for fasting triglyceride, August 2012. VLDL 23 1 - 30 mg/dL 04/28/2025 6:48 AM EDT [facility] 04/28/2025 6:48 AM EDT us Chilango Wyatt MD CHEMISTRY ORDERABLES Final Res ult [facility] [address] [place] [address], [facility] [phone] [facility] [address] [place], [place] [address] [phone] * Colonoscopy (05/02/2023 8:16 AM EDT) Narrative Epic, User - 05/02/2023 8:16 AM EDT No dictation Joy Cortez I, ENDOSCOPY ORDERABLES Final Result from Last 3 Months or Most Recently Relevant to Health Maintenance Insurance [employer] Advance Directives * Full Code (Latest Code Status on File) Date Activated Date Inactivated Comments 09/10/2024 8:44 AM 09/10/2024 11:37 AM * Full Code Date Activated Date Inactivated Comments 05/10/2024 8:30 AM 05/10/2024 11:20 AM * Full Code Date Activated Date Inactivated Comments 10/22/2022 11:59 AM 10/22/2022 7:34 PM * Full Code Date Activated Date Inactivated Comments 04/24/2021 11:39 AM 04/24/2021 8:54 PM Care Teams Laborer [employer] Relationship Specialty Start Date End Date Karolyn Cross MD [address] [place] [address] PCP - General Family Medicine 05/23/25
--- OUTSIDE RECORDS SUMMARY | 2025-08-15 10:46 | XMS_ITS | Clinical Summary ---
Author Organization [facility] Healthcare Address [address] [place] [address] Care Team Providers Care Er Medical Technician Name Role Phone Karolyn Cross MD Primary Care Provider [phone] Social History Tobacco Use Types Packs/Day Years Used Date Smoking Tobacco: Never Assessed Sex and Gender Information Value Date Recorded Sex Assigned at Not on file Legal Sex Male 7:09 PM EDT Gender Identity Not on file Sexual Orientation Not on file Plan of Treatment Health Maintenance Due Date Last Done Comments CT Colonography 1964 FIT-DNA 1964 FIT 1964 FOBT 1965 Sigmoidoscopy 1964 Influenza Vaccine (#1) 2025 10/20/2012 Colonoscopy 05/02/2033 05/02/2023, 09/06/2015 Colorectal Cancer Screening 05/02/2033 Procedures Procedure Name Priority Date/Time Associated Diagnosis Comments COLONOSCOPY Routine 09/06/2015 12:00 PM EDT from Last 3 Months or Most Recently Relevant to Health Maintenance Results * Colonoscopy (09/06/2015 12:00 PM EDT) Anatomical Region Laterality Modality Endoscopy 09/06/2015 12:0 0 PM EDT Narrative 09/06/2015 12:00 PM EDT PERFORMED AT [facility] LOCATION:[id number] Normal Procedure Note CONVERSION, GENERIC - 04/03/2023 PERFORMED AT [facility] LOCATION:[id number] Normal us Meera Bains MD ENDOSCOPY PROCEDURE ORDERABLE S Final Result from Last 3 Months or Most Recently Relevant to Health Maintenance Care Teams Er Medical Technician Relationship Specialty Start Date End Date Karolyn Cross MD [address] [place] [address] PCP - General Family Medicine 08/03/25
--- OUTSIDE RECORDS SUMMARY | 2025-08-15 10:46 | XMS_ITS | Encounter Summary ---
Author Organization [facility] Address [address], [address] [place] [address] Care Team Providers Care Clinic Clerk Name Role Phone Karolyn Cross MD Primary Care Provider [phone] Encounter Details Date Type Department Care Team (Late st Contact Info) Description 08/01/2025 Care Coordination [facility] Population Care Jihan Martini RN Social History Tobacco Use Types Packs/Day Years Used Date Smoking Tobacco: Never Smokeless Tobacco: Never Alcohol Use Standard Drinks/Week Comments Yes 12 (1 standard drink = 0.6 oz pu re alcohol) [facility] Utilities Answer Date Recorded In the past 12 months has th e [employer], gas, oil, or water [employer] threatened to shut off services in your [...] any time in the past 12 [place], were you homeless or living in a correction (including now)? No 05/23/2025 Food Insecurity Answer [...] Description 08/30/2025 1:45 PM EDT Office Visit [facility] [address] [place] [address] Chava Santos MD [address] [place] [address] F/U FOR SIRRHOSIS 09/06/2025 9:15 AM EDT Office Visit [facility] [address] [place] [address] [place] [address] Karolyn Cross MD [address] [place] [address] [facility] . documented as of this encounter Visit Diagnoses Not on filedocumented in this encounter Care Teams Clinic Clerk Relationship Specialty Start Date End Date Karolyn Cross MD [address] [place] [address] PCP - General Family Medicine 05/23/25 documented as of this encounter
--- OUTSIDE RECORDS SUMMARY | 2025-08-15 10:47 | XMS_ITS | Encounter Summary ---
Author Organization [facility] Address [facility] [place] [address] Care Team Providers Care Enterprise Applications Manager Name Role Phone Lorie Díaz MD Unavailable Source Comments In the event this information is protected by the Federal Confidentiality of Alcohol and Drug AbusePatient Records regulations: The Federal rules restrict any use of the information to criminally investigate or prosecute any alcohol or drug abuse patient.[facility] Encounter Details Date Type Department Care Team (Late st Contact Info) Description 02/16/2021 Patient Msg Gastroenterology [address] [place] [id number] Tapan Magallanes MD [address] [place] [address] Follow up Social History Tobacco Use Types Packs/Day Years Used Date Smoking Tobacco: Never Smokeless Tobacco: Never Alcohol Use Standard Drinks/Week Comments Yes 1 (1 standard drink = 0.6 oz pur e alcohol) daily Area Deprivation Index Answer Date Mikhail rded National Score (1-100), lower number is lower ri sk Not on file 2020 State Score (1-10), lower number is lower risk N ot on file 2020 Data from: https://www.neighborhoodatlas.medicine.[facility]/. Last address used for calculation Not on file 2020 Sex and Gender Information Value Date Recorded Sex Assigned at Not on file Legal Sex Male 9:43 AM EST Gender Identity Not on file Sexual Orientation Not on file documented as of this encounter Plan of Treatment Not on file documented as of this encounter Visit Diagnoses Not on filedocumented in this encounter Care Teams Enterprise Applications Manager Relationship Specialty Start Date End Date Lorie Díaz MD Referring Gastroenterology 03/05/19 documented as of this encounter
--- OUTSIDE RECORDS SUMMARY | 2025-08-15 10:47 | XMS_ITS | Encounter Summary ---
Author Organization [facility] Address [facility] [place] [id number] Care Team Providers Care Director Talent Acquisition Name Role Phone Lorie Díaz MD Unavailable Source Comments In the event this information is protected by the Federal Confidentiality of Alcohol and Drug AbusePatient Records regulations: The Federal rules restrict any use of the information to criminally investigate or prosecute any alcohol or drug abuse patient.[facility] Encounter Details Date Type Department Care Team (Late st Contact Info) Description 02/07/2021 Get Medical Advice Gastroenterology [address] [place] [address] Lida Hammond PA-C [address] [place], [place] [id number] RE: Medication Question (Not Renewal) Social History Tobacco Use Types Packs/Day Years [...] N ot on file 2020 Data from: https://www.neighborhoodatlas.medicine.[facility].edu/. Last address used for calculation Not on [...] on filedocumented in this encounter Care Teams Director Talent Acquisition Relationship Specialty Start Date End Date Lorie Díaz MD Referring Gastroenterology 03/05/19 documented as of this encounter
--- OUTSIDE RECORDS SUMMARY | 2025-08-15 10:47 | XMS_ITS | Clinical Summary ---
Author Organization [facility] Address [address] [place], [place] [id number] Care Team Providers Care Architectural Job Captain Name Role Phone Lorie Díaz MD Unavailable Allergies No known active allergies Medications omeprazole (PRILOSEC) 20 mg capsule Take 2 capsules by mouth once daily. 60 capsule 11 02/04/2022 Active atorvastatin (LIPITOR) 20 mg tablet TAKE 1 TABLET BY MOUTH ONE TIME A DAY 90 tablet 3 07/09/2023 Active Active Problems Problem Noted Date Diagnosed Date Obesity, Class I, BMI 30-34.9 01/13/2020 Social History Tobacco Use Types Packs/Day Years Used Date Smoking Tobacco: Never Smokeless Tobacco: Never Alcohol Use Standard Drinks/Week Comments Yes 1 (1 standard drink = 0.6 oz pur e alcohol) daily Area Deprivation Index Answer Date Mikhail rded National Score (1-100), lower number is lower ri sk 69 12/12/2022 State Score (1-10), lower number is lower risk N ot on file 12/12/2022 Data from: https://www.neighborhoodatlas.medicine.[facility].edu/. Last address used for calculation [address] 12/12/2022 Sex and Gender Information Value Date Recorded Sex Assigned at Not on file Legal Sex Male 9:43 AM EST Gender Identity Not on file Sexual Orientation Not on file Last Filed Vital Signs Vital Sign Reading Time Taken Comments Blood Pressure 153/82 01/31/2022 2:00 PM EDT Pulse 99 01/31/2022 2:00 PM EDT Temperature 36.3 C (97.3 F) 01/31/2022 1:40 PM EDT Respiratory Rate 20 01/31/2022 2:00 PM EDT Oxygen Saturation 93% 01/31/2022 2:00 PM EDT Inhaled Oxygen Concentration - - Weight 102.1 kg (225 lb) 01/31/2022 1:17 PM EDT Height 182.9 cm (6') 01/31/2022 1:17 PM EDT Body Mass Index 30.52 01/31/2022 1:17 PM EDT Plan of Treatment Health Maintenance Due Date Last Done Comments Anxiety Screening 1982 Depression Screening 1982 HIV Screening 1982 DTaP,Tdap,Td Vaccine (1 - Tdap) 1983 CT Colonography 2009 Cologuard (FIT-DNA) 2009 Colonoscopy 2009 Colorectal Cancer Screening 2009 Fecal Occult Blood 2009 Prostate Cancer Screening Discussion 2009 Sigmoidoscopy 2009 Pneumococcal Vaccine: 50+ (1 of 1 - PCV) 2014 Shingrix Vaccine (1 of 2) 2014 Lipid Screening 06/25/2024 06/25/2019 Influenza Vaccine (#1) 2025 10/20/2012 Diabetes Screening 07/16/2028 07/16/2025, 0 07/06/2025, 06/13/2025, Additional history exists RSV Vaccine (1 - 1-dose 75+ series) 2039 Hepatitis C Screening Completed 06/13/2025, 019 Medical Devices Implanted Type Area Bioassayist Device Identifier Shelf Expiration Date Model / Serial / Lot Joint - Knee Joint - Knee Left: Bone - Knee Procedures Procedure Name Priority Date/Time Associated Diagnosis Comments US OUTSIDE CD DICOM IMPORT 07/25/2025 GLUCOSE FASTING BLD Routine 06/25/2019 1 2:02 PM EDT LIPID PANEL, FASTING Routine 06/25/2019 12:02 PM EDT HEP C AB IA BLOOD Routine 04/08/2019 12: 41 PM EDT Abnormal liver enzymes from Last 3 Months or Most Recently Relevant to Health Maintenance Results * US-US liver IMPORT (07/25/2025) Anatomical Region Laterality Modality Other 07/25/2025 Narrative 07/28/2025 11:17 PM EDT Images were obtained outside of [facility] Procedure Note Provider, [facility] [place] - 07/28/2025 Images were obtained outside of [facility] Provider RADIOLOGY Final Result * (ABNORMAL) LIPID PANEL BASIC (06/25/2019 12:02 PM EDT) Cholesterol, Total 242(H) <200 mg/dL 06/25/2019 3:10 PM EDT [facility] Comment: <200 mg/dL, Desirable 200-239 mg/dL, Borderline high >239 mg/dL, High Triglyceride 95 <150 mg/dL 06/25/2019 3:10 PM EDT [facility] Comment: <150 mg/dL, Normal 150-199 mg/dL, Borderline high 200-499 mg/dL, High >499 mg/dL, Very high HDL Cholesterol 89 >39 mg/dL 3:10 PM EDT [facility] Comment: 40-59 mg/dL, Acceptable >59 mg/dL, High: Negative risk factor for coronary heart disease <40 mg/dL, Low: Positive risk factor for coronary heart disease LDL Cholesterol, Calculated 134(H) <100 mg/dL 06/25/2019 3:10 PM T [facility] Comment: <100 mg/dL, Optimal 100-129 mg/dL, Near optimal/above optimal 130-159 mg/dL, Borderline high 160-189 mg/dL, High >189 mg/dL, Very high Secondary prevention optimal LDL Cholesterol levels are recommended to be < 70 mg/dL Non HDL Cholesterol 153(H) <130 mg/dL 06/25/2019 3:10 PM T [facility] Comment: <130 mg/dL, Optimal 130-159 mg/dL, Near optimal/above optimal 160-189 mg/dL, Borderline high 190-219 mg/dL, High >219 mg/dL, Very high Secondary prevention optimal non HDL Cholesterol levels are recommended to be < 100 mg/dL Fasting Time Unknown hrs 06/25/2019 2:39 PM EDT [facility] VLDL Cholesterol 19 <30 mg/dL 06/25/20 19 3:10 PM EDT [facility] TC:HDL Ratio 2.72 <5.10 06/25/2019 3:10 PM EDT [facility] LDL:HDL Ratio 1.51 <2.54 06/25/2019 3:10 PM EDT [facility] Comment: Reference: 1. National Cholesterol Education Program ATP III Guideline At-A-Glance Quick Desk Reference: National Heart, Lung, and Blood [place]. National Institutes of Health. 2001: NIH Publication No. 01-3305. 2. An International Atherosclerosis Society position paper: global recommendations for the management of dyslipidemia: executive summary, Atherosclerosis. 2014: 232(2):410-413. 06/25/2019 12:0 2 PM EDT 06/25/2019 1:34 PM EDT us Physician Interface LABORATORY Final Result Performing Organization Address City/State/[facility] Co de Phone Number [facility] [address] [facility] [place] [address] [facility] [address] [place] [address] from Last 3 Months or Most Recently Relevant to Health Maintenance Insurance [facility] Care Teams Architectural Job Captain Relationship Specialty Start Date End Date Lorie Díaz MD Referring Gastroenterology 03/05/19
--- OUTSIDE RECORDS SUMMARY | 2025-08-15 10:47 | XMS_ITS | Encounter Summary ---
Author Organization [facility] Address [facility] [place] [address] Care Team Providers Care Order Checker Packer Processer Name Role Phone Lorie Díaz MD Unavailable Source Comments In the event this information is protected by the Federal Confidentiality of Alcohol and Drug AbusePatient Records regulations: The Federal rules restrict any use of the information to criminally investigate or prosecute any alcohol or drug abuse patient.[facility] Encounter Details Date Type Department Care Team (Late st Contact Info) Description 02/15/2021 Get Medical Advice Gastroenterology [address] [address] Tapan Espinal MD [address] [place] [address] Medication Question (Not Renewal) Social History Tobacco [...] N ot on file 2020 Data from: https://www.neighborhoodatlas.medicine.[facility].edu/. Last address used for calculation Not [...] on filedocumented in this encounter Care Teams Order Checker Packer Processer Relationship Specialty Start Date End Date Lorie Díaz MD Referring Gastroenterology 03/05/19 documented as of this encounter
--- OUTSIDE RECORDS SUMMARY | 2025-08-15 10:47 | XMS_ITS | Encounter Summary ---
Author Organization [facility] Address [address] [facility], [address] [place] [address] Care Team Providers Care Statistical Geneticist Name Role Phone Karolyn Cross MD Primary Care Provider +1- [phone] Encounter Details Date Type Department Care Team (Latest Contact Info) Description 08/05/2025 Care Coordination [facility] Population Care Jihan Martini RN Episode status: Enrolled (Care Transitions) Social History Tobacco Use Types Packs/Day Years Used Date Smoking Tobacco: Never Smokeless Tobacco: Never Alcohol Use Standard Drinks/Week Comments Yes 12 (1 standard drink = 0.6 oz pu re alcohol) [facility] Utilities Answer Date Recorded In the [...] any time in the past 12 m [facility], were you homeless or living in a [place] (including now)? No 05/23/2025 Food Insecurity Answer [...] Description 08/30/2025 1:45 PM EDT Office Visit [facility] Gastroenterology [address] [place] [address] Chava Santos MD [address] [place] [address] F/U FOR SIRRHOSIS 09/06/2025 9:15 AM EDT Office Visit [facility] Primary Care [address] [place] [address] [place] [address] Karolyn Cross MD [address] [place] [address] [place] [address] meds labs . documented as of this encounter Visit Diagnoses Not on filedocumented in this encounter Care Teams Statistical Geneticist Relationship Specialty Start Date End Date Karolyn Cross MD [address] [id number] PCP - General Family Medicine 05/23/25 documented as of this encounter
--- OUTSIDE RECORDS SUMMARY | 2025-08-15 10:47 | XMS_ITS | Encounter Summary ---
Author Organization [facility] Address [facility] [place] [id number] Care Team Providers Care Systems Qa Analyst Name Role Phone Lorie Díaz MD Unavailable Source Comments In the event this information is protected by the Federal Confidentiality of Alcohol and Drug AbusePatient Records regulations: The Federal rules restrict any use of the information to criminally investigate or prosecute any alcohol or drug abuse patient.[facility] Encounter Details Date Type Department Care Team (Late st Contact Info) Description 12/04/2020 Get Medical Advice Gastroenterology [address] [place] [address] Lida Hammond PA-C [address] [place], [place] [phone] RE: Visit Follow Up Question Social History Tobacco Use Types Packs/Day Years [...] N ot on file 2020 Data from: https://www.neighborhoodatlas.medicine.[facility]/. Last address used for calculation [...] on filedocumented in this encounter Care Teams Systems Qa Analyst Relationship Specialty Start Date End Date Lorie Díaz MD Referring Gastroenterology 03/05/19 documented as of this encounter
--- OUTSIDE RECORDS SUMMARY | 2025-08-15 10:47 | XMS_ITS | Encounter Summary ---
Author Organization [facility] Address [address] [facility], [address] [place] [address] Care Team Providers Care Medical Office Worker Name Role Phone Karolyn Cross MD Primary Care Provider +1- [phone] Encounter Details Date Type Department Care Team (Latest Contact Info) Description 08/12/2025 Care Coordination [facility] Population Care Jihan Martini RN Episode status: Enrolled (Care Transitions) Social History Tobacco Use Types Packs/Day Years Used Date Smoking Tobacco: Never Smokeless Tobacco: Never Alcohol Use Standard Drinks/Week Comments Not Currently [...] any time in the past 12 m [facility], were you homeless or living in a snf (including now)? No 08/08/2025 Hunger Vital Sign [...] things needed for daily living? No 08/08/2025 [facility] Utilities Answer Date Recorded In the [...] Description 08/30/2025 1:45 PM EDT Office Visit [facility] Gastroenterology [address] [place] [address] Chava Santos MD [address] [place] [address] F/U FOR SIRRHOSIS 09/06/2025 9:15 AM EDT Office Visit [facility] Primary Care [address] [place] [address] [place] [address] Karolyn Cross MD [address] [place] [address] [place] [address] meds labs . documented as of this encounter Visit Diagnoses Not on filedocumented in this encounter Care Teams Medical Office Worker Relationship Specialty Start Date End Date Karolyn Cross MD [address] [facility] [address] [place] [address] PCP - General Family Medicine 05/23/25 documented as of this encounter
--- OUTSIDE RECORDS SUMMARY | 2025-08-15 10:47 | XMS_ITS | Encounter Summary ---
Author Organization [facility] Address [address] [facility], [address] [place] [address] Care Team Providers Care Historical Manuscripts Curator Name Role Phone Karolyn Cross MD Primary Care Provider +1- [phone] Reason for Visit * Reason Onset Date Comments Home Health 08/03/2025 Encounter Details Date Type Department Care Team (Late st Contact Info) Description 08/03/2025 Telephone [facility] Primary Care [address] [place] [address] [place] [address] Karolyn Cross MD [address] [place] [address] [place] [address] Home Health Social History Tobacco Use Types Packs/Day Years Used Date Smoking Tobacco: Never Smokeless Tobacco: Never Alcohol Use Standard Drinks/Week Comments Yes 12 (1 standard drink = 0.6 oz pu re alcohol) [facility] Utilities Answer Date Recorded In the past 12 months has e [employer], gas, oil, or water [employer] threatened to shut off services in your [...] any time in the past 12 m onths, were you homeless or living in a [facility] (including now)? No 05/23/2025 Food Insecurity Answer [...] Description 08/30/2025 1:45 PM EDT Office Visit [facility] Gastroenterology [address] [place] [address] Chava Santos MD [address] [place] [address] F/U FOR SIRRHOSIS 09/06/2025 9:15 AM EDT Office Visit [facility] Primary Care [address] [place] [address] [place] [address] Karolyn Cross MD [address] [place], [place] [phone] meds labs . documented as of this encounter Visit Diagnoses Not on filedocumented in this encounter Care Teams Historical Manuscripts Curator Relationship Specialty Start Date End Date Karolyn Cross MD [address] [place], [place] [phone] PCP - General Family Medicine 05/23/25 documented as of this encounter
--- OUTSIDE RECORDS SUMMARY | 2025-08-15 10:47 | XMS_ITS | Encounter Summary ---
Author Organization [facility] Address [facility] [place] [address] Care Team Providers Care Revenue Tax Specialist Name Role Phone Lorie Díaz MD Unavailable Source Comments In the event this information is protected by the Federal Confidentiality of Alcohol and Drug AbusePatient Records regulations: The Federal rules restrict any use of the information to criminally investigate or prosecute any alcohol or drug abuse patient.[facility] Encounter Details Date Type Department Care Team (Late st Contact Info) Description 05/08/2020 Get Medical Advice Gastroenterology [address] [place] [phone] Tapan Espinal MD [address] [place] [address] RE: Test Result Question Social History Tobacco Use Types Packs/Day Years Used Date Smoking Tobacco: Never Smokeless Tobacco: Never Alcohol Use Standard Drinks/Week Comments Yes 1 (1 standard drink = 0.6 oz pur e alcohol) daily Sex and Gender Information Value Date Recorded Sex Assigned at Not on file Legal Sex Male 9:43 AM EST Gender Identity Not on file Sexual Orientation Not on file documented as of this encounter Miscellaneous Notes * Telephone Encounter - Nelda Key - 05/09/2020 8:22 AM EDT Please re-enter the labs order as standing orders (monthly) Nelda Wallace documented in this encounter Plan of Treatment Not on file documented as of this encounter Visit Diagnoses Not on filedocumented in this encounter Care Teams Revenue Tax Specialist Relationship Specialty Start Date End Date Lorie Díaz MD Referring Gastroenterology 03/05/19 documented as of this encounter
--- OUTSIDE RECORDS SUMMARY | 2025-08-15 10:47 | XMS_ITS | Encounter Summary ---
Author Organization [facility] Address [facility] [place] [address] Care Team Providers Care Online Services Manager Name Role Phone Lorie Díaz MD Unavailable Source Comments In the event this information is protected by the Federal Confidentiality of Alcohol and Drug AbusePatient Records regulations: The Federal rules restrict any use of the information to criminally investigate or prosecute any alcohol or drug abuse patient.[facility] Encounter Details Date Type Department Care Team (Late st Contact Info) Description 05/08/2020 Get Medical Advice Gastroenterology [address] [place] [phone] Tapan Espinal MD [address] [place] [address] RE: Test Result Question Social [...] Telephone Encounter - Nelda Key - 05/09/2020 8:19 AM EDT Please check your office for results. Nothing found under scanned records Nelda Wallace documented in this encounter Plan of Treatment Not on file documented as of this encounter Visit Diagnoses Not on filedocumented in this encounter Care Teams Online Services Manager Relationship Specialty Start Date End Date Lorie Díaz MD Referring Gastroenterology 03/05/19 documented as of this encounter
--- OUTSIDE RECORDS SUMMARY | 2025-08-15 10:47 | XMS_ITS | Encounter Summary ---
Author Organization [facility] Address [address] [facility], [address] [place] [address] Care Team Providers Care Ritual Circumciser Name Role Phone Karolyn Cross MD Primary Care Provider +1- [phone] Encounter Details Date Type Department Care Team (Latest Contact Info) Description 08/09/2025 Care Coordination [facility] Population Care Jihan Martini RN Episode status: [...] any time in the past 12 m [facility], were you homeless or living in a fdc (including now)? No 08/08/2025 Hunger Vital Sign [...] things needed for daily living? No 08/08/2025 [facility] Utilities Answer Date Recorded In [...] 1:45 PM EDT Office Visit [facility] Gastroenterology [address] [place] [address] Chava Santos MD [address] [place] [address] F/U FOR SIRRHOSIS 09/06/2025 9:15 AM EDT Office Visit [facility] Primary Care [address] [place] [address] [place] [address] Karolyn Cross MD [address] [place] [address] [place] [address] meds labs . documented as of this encounter Visit Diagnoses Not on filedocumented in this encounter Care Teams Ritual Circumciser Relationship Specialty Start Date End Date Karolyn Cross MD [address] [facility] [address] [place] [address] PCP - General Family Medicine 05/23/25 documented as of this encounter
--- OUTSIDE RECORDS SUMMARY | 2025-08-15 10:47 | XMS_ITS | Encounter Summary ---
Author Organization [facility] Address [facility] [place] [address] Care Team Providers Care Tick Sewer Name Role Phone Lorie Díaz MD Unavailable Source Comments In the event this information is protected by the Federal Confidentiality of Alcohol and Drug AbusePatient Records regulations: The Federal rules restrict any use of the information to criminally investigate or prosecute any alcohol or drug abuse patient.[facility] Encounter Details Date Type Department Care Team (Late st Contact Info) Description 01/14/2020 Get Medical Advice Gastroenterology [address] [address] Tapan Espinal MD [address] [place] [address] RE: Non-Urgent Medical Question Social History Tobacco Use Types Packs/Day [...] on filedocumented in this encounter Care Teams Tick Sewer Relationship Specialty Start Date End Date Lorie Díaz MD Referring Gastroenterology 03/05/19 documented as of this encounter
--- OUTSIDE RECORDS SUMMARY | 2025-08-15 10:47 | XMS_ITS | Encounter Summary ---
Author Organization [facility] Address [facility] [place] [address] Care Team Providers Care Freight Separator Name Role Phone Lorie Díaz MD Unavailable Source Comments In the event this information is protected by the Federal Confidentiality of Alcohol and Drug AbusePatient Records regulations: The Federal rules restrict any use of the information to criminally investigate or prosecute any alcohol or drug abuse patient.[facility] Encounter Details Date Type Department Care Team (Late st Contact Info) Description 02/16/2021 Get Medical Advice Gastroenterology [address] [address] Tapan Espinal MD [address] [place] [address] Medication Question (Not Renewal) Social [...] N ot on file 2020 Data from: https://www.neighborhoodatlas.medicine.[facility].edu/. Last address used for calculation Not [...] on filedocumented in this encounter Care Teams Freight Separator Relationship Specialty Start Date End Date Lorie Díaz MD Referring Gastroenterology 03/05/19 documented as of this encounter
--- OUTSIDE RECORDS SUMMARY | 2025-08-15 10:47 | XMS_ITS | Encounter Summary ---
Author Organization [facility] Address [address] [facility], [address] [place] [address] Care Team Providers Care Spray Foam Installer Name Role Phone Karolyn Cross MD Primary Care Provider [phone] Reason for Referral * Imaging (Routine) - Closed Specialty Diagnoses / Procedures Referred By Contac t Referred To Contact Radiology Diagnoses Colitis Procedures CT ABDOMEN PELVIS W IV CONTRAST Additional Contrast? Oral Emilie Castillo MD [address] [place] [address] Phone: tel: fax: Referral ID Status Reason Start Date Expiration Date Visits Re quested Visits Authorized [id number] Closed 02/08/2022 02/06/2023 1 1 Encounter Details Date Type Department Care Team (Latest Contact Info) Description 02/06/2022 Transcribe Orders Matt Pre Access [address] [place], [place] [id number] Emilie Castillo MD [address] [place] [address] Colitis (Primary Dx) Social History Tobacco Use Types Packs/Day Years Used Date Smoking Tobacco: Never Smokeless Tobacco: Never Alcohol Use Standard Drinks/Week Comments Yes 0 (1 standard drink = 0.6 oz pur e alcohol) Sex and Gender Information Value Date Recorded Sex Assigned at Not on file Legal Sex Male 10:05 AM EDT Gender Identity Not on file Sexual Orientation Not on file documented as of this encounter Plan of Treatment Upcoming Encounters Date Type Department Care Team (Late st Contact Info) Description 08/30/2025 1:45 PM EDT Office Visit [facility] Gastroenterology [address] [place] [address] Chava Santos MD [address] [place] [address] F/U FOR SIRRHOSIS 09/06/2025 9:15 AM EDT Office Visit [facility] Primary Care [address] [place] [address] [address] [place], [place] [id number] Karolyn Cross MD [address] [facility] [address] [place] [address] fu meds labs . documented as of this encounter Results * CT ABDOMEN PELVIS W IV CONTRAST Additional Contrast? Oral (02/13/2022 3:15 PM EDT) Anatomical Region Laterality Modality Abdomen, Pelvis, Hip Computed To mography 02/13/2022 3:44 PM EDT Impressions 02/14/2022 3:29 PM EDT Mild acute nonspecific and uncomplicated distal descending colonic colitis. Probable mild hepatic steatosis. Narrative 02/14/2022 3:29 PM EDT EXAMINATION: CT OF THE ABDOMEN AND PELVIS WITH CONTRAST 02/13/2022 3:14 pm TECHNIQUE: CT of the abdomen and pelvis was performed with the administration of intravenous contrast. Multiplanar reformatted images are provided for review. Dose modulation, iterative reconstruction, and/or weight based adjustment of the mA/kV was utilized to reduce the radiation dose to as low as reasonably achievable. COMPARISON: None. HISTORY: ORDERING SYSTEM PROVIDED HISTORY: Colitis TECHNOLOGIST PROVIDED HISTORY: STAT Creatinine as needed:->Yes FINDINGS: Lower Chest: No significant abnormality at the lung bases. Organs: There is relative decreased diffuse attenuation of the liver parenchyma most typically related to hepatic steatosis. The gallbladder is surgically absent. No biliary ductal dilatation. The spleen is normal in size without focal lesion. The pancreas and the adrenal glands are unremarkable. The kidneys enhance symmetrically without collecting system dilatation. Small bilateral peripelvic cysts are present, left greater than right. No concerning renal lesion. GI/Bowel: There is mild circumferential wall thickening of the distal descending colon up to the proximal sigmoid colon associated with subtle pericolonic fat stranding. This corresponds to the history of acute nonspecific colitis. No bowel obstruction. The appendix is normal. No pneumatosis or portal venous gas. Pelvis: The prostate is not enlarged. The urinary bladder is within normal limits. Peritoneum/Retroperitoneum: No abdominal lymphadenopathy or ascites. Bones/Soft Tissues: Tiny fat-containing umbilical hernia is present. No acute osseous abnormality. Procedure Note Doc Arias MD - 02/14/2022 EXAMINATION: CT OF THE ABDOMEN AND PELVIS WITH CONTRAST 02/13/2022 3:14 pm TECHNIQUE: CT of the abdomen and pelvis was performed with the administration of intravenous contrast. Multiplanar reformatted images are provided forreview. Dose modulation, iterative reconstruction, and/or weight based adjustmentof the mA/kV was utilized to reduce the radiation dose to as low asreasonably achievable. COMPARISON: None. HISTORY: ORDERING SYSTEM PROVIDED HISTORY: Colitis TECHNOLOGIST PROVIDED HISTORY: STAT Creatinine as needed:->Yes FINDINGS: Lower Chest: No significant abnormality at the lung bases. Organs: There is relative decreased diffuse attenuation of the liver parenchyma most typically related to hepatic steatosis. The gallbladderis surgically absent. No biliary ductal dilatation. The spleen is normalin size without focal lesion. The pancreas and the adrenal glands are unremarkable. The kidneys enhance symmetrically without collectingsystem dilatation. Small bilateral peripelvic cysts are present, left greaterthan right. No concerning renal lesion. GI/Bowel: There is mild circumferential wall thickening of the distal descending colon up to the proximal sigmoid colon associated with subtle pericolonic fat stranding. This corresponds to the history of acute nonspecific colitis. No bowel obstruction. The appendix is normal. No pneumatosis or portal venous gas. Pelvis: The prostate is not enlarged. The urinary bladder is withinnormal limits. Peritoneum/Retroperitoneum: No abdominal lymphadenopathy or ascites. Bones/Soft Tissues: Tiny fat-containing umbilical hernia is present. No acute osseous abnormality. IMPRESSION: Mild acute nonspecific and uncomplicated distal descending coloniccolitis. Probable mild hepatic steatosis. Emilie Castillo MD IMG CT ORDERABLES Final Result documented in this encounter Visit Diagnoses Diagnosis Colitis- Primary Other and unspecified noninfectious gastroenteritis and colitis Colitis Other and unspecified noninfectious gastroenteritis and colitis documented in this encounter Care Teams Spray Foam Installer Relationship Specialty Start Date End Date Karolyn Cross MD [address] [place] [address] PCP - General Family Medicine 05/23/25 documented as of this encounter
--- OUTSIDE RECORDS SUMMARY | 2025-08-15 10:48 | XMS_ITS | Encounter Summary ---
Author Organization [facility] Address [address] [place] [address] Care Team Providers Care Watch Technician Name Role Phone Lorie Díaz MD Unavailable Source Comments In the event this information is protected by the Federal Confidentiality of Alcohol and Drug AbusePatient Records regulations: The Federal rules restrict any use of the information to criminally investigate or prosecute any alcohol or drug abuse patient.[facility] Encounter Details Date Type Department Care Team (Late st Contact Info) Description 02/15/2022 Patient Msg Gastroenterology [address] [place] [address] Lisette Siddiqui MD [facility] [place] [address] Reminder to have labs drawn Social History Tobacco Use Types Packs/Day Years [...] N ot on file 2020 Data from: https://www.neighborhoodatlas.medicine.[facility].edu/. Last address used for calculation Not on file 2020 Sex and Gender Information Value Date Recorded Sex Assigned at Not on file Legal Sex Male 9:43 AM EST Gender Identity Not on file Sexual Orientation Not on file COVID-19 Exposure Response Date Recorded In the last 10 days, have yo u been in contact with someone who was confirmed or suspected to have Coronavirus/COVID-19? No / Unsure 01/31/2022 9:47 AM EDT documented as of this encounter Plan of Treatment Not on file documented as of this encounter Visit Diagnoses Not on filedocumented in this encounter Care Teams Watch Technician Relationship Specialty Start Date End Date Lorie Díaz MD Referring Gastroenterology 03/05/19 documented as of this encounter
--- OUTSIDE RECORDS SUMMARY | 2025-08-15 10:48 | XMS_ITS | Encounter Summary ---
Author Organization [facility] Address [facility] [place] [address] Care Team Providers Care Courseware Developer Name Role Phone Lorie Díaz MD Unavailable Source Comments In the event this information is protected by the Federal Confidentiality of Alcohol and Drug AbusePatient Records regulations: The Federal rules restrict any use of the information to criminally investigate or prosecute any alcohol or drug abuse patient.[facility] Encounter Details Date Type Department Care Team (Late st Contact Info) Description 01/19/2023 Patient Msg Gastroenterology [address] [place] [address] Provider, [facility] Appointment reminder Social History Tobacco Use Types Packs/Day Years [...] on file 12/12/2022 Data from: https://www.neighborhoodatlas.medicine.[facility].edu/. Last address used for calculation [address] [facility] 12/12/2022 Sex and Gender Information Value Date Recorded Sex Assigned at Not on file Legal Sex Male 9:43 AM EST Gender Identity Not on file Sexual Orientation Not on file documented as of this encounter Plan of Treatment Not on file documented as of this encounter Visit Diagnoses Not on filedocumented in this encounter Care Teams Courseware Developer Relationship Specialty Start Date End Date Lorie Díaz MD Referring Gastroenterology 03/05/19 documented as of this encounter
--- OUTSIDE RECORDS SUMMARY | 2025-08-15 10:48 | XMS_ITS | Encounter Summary ---
Author Organization [facility] Address [address] [place] [address] Care Team Providers Care Nurse Infection Control Name Role Phone Lorie Díaz MD Unavailable Source Comments In the event this information is protected by the Federal Confidentiality of Alcohol and Drug AbusePatient Records regulations: The Federal rules restrict any use of the information to criminally investigate or prosecute any alcohol or drug abuse patient.[facility] Encounter Details Date Type Department Care Team (Late st Contact Info) Description 11/18/2022 Patient Msg Gastroenterology [address] [place] [address] Lisette Siddiqui MD [facility] [place] [address] Please have labs drawn Social History Tobacco Use [...] N ot on file 2020 Data from: https://www.neighborhoodatlas.[facility]/. Last address used for calculation Not on file 2020 Sex and Gender Information Value Date Recorded Sex Assigned at Not on file Legal Sex Male 9:43 AM EST Gender Identity Not on file Sexual Orientation Not on file documented as of this encounter Plan of Treatment Not on file documented as of this encounter Visit Diagnoses Diagnosis Steatohepatitis- Primary Other chronic nonalcoholic liver disease documented in this encounter Care Teams Nurse Infection Control Relationship Specialty Start Date End Date Lorie Díaz MD Referring Gastroenterology 03/05/19 documented as of this encounter
--- OUTSIDE RECORDS SUMMARY | 2025-08-15 10:48 | XMS_ITS | Encounter Summary ---
Author Organization [facility] Address [facility] [place] [address] Care Team Providers Care Plating Tank Operator Name Role Phone Lorie Díaz MD Unavailable Source Comments In the event this information is protected by the Federal Confidentiality of Alcohol and Drug AbusePatient Records regulations: The Federal rules restrict any use of the information to criminally investigate or prosecute any alcohol or drug abuse patient.[facility] Encounter Details Date Type Department Care Team (Late st Contact Info) Description 02/07/2023 Patient Msg Gastroenterology [address] [place] [address] Provider, [facility] Appointments Social History Tobacco Use Types Packs/Day Years [...] N ot on file 12/12/2022 Data from: https://www.neighborhoodatlas.medicine.[facility].edu/. Last address used for calculation [address] [facility] 12/12/2022 Sex and Gender Information Value Date Recorded Sex Assigned at Not on file Legal Sex Male 9:43 AM EST Gender Identity Not on file Sexual Orientation Not on file documented as of this encounter Plan of Treatment Not on file documented as of this encounter Visit Diagnoses Not on filedocumented in this encounter Care Teams Plating Tank Operator Relationship Specialty Start Date End Date Lorie Díaz MD Referring Gastroenterology 03/05/19 documented as of this encounter
--- OUTSIDE RECORDS SUMMARY | 2025-08-15 10:48 | XMS_ITS | Encounter Summary ---
Author Organization [facility] Address [address] [place] [address] Care Team Providers Care Residential Tech Name Role Phone Lorie Díaz MD Unavailable Source Comments In the event this information is protected by the Federal Confidentiality of Alcohol and Drug AbusePatient Records regulations: The Federal rules restrict any use of the information to criminally investigate or prosecute any alcohol or drug abuse patient.[facility] Encounter Details Date Type Department Care Team (Late st Contact Info) Description 01/01/2022 Patient Msg Gastroenterology [address] [place] [address] Lisette Siddiqui MD [facility] [place] [address] Contact information Social History Tobacco Use Types Packs/Day Years [...] N ot on file 2020 Data from: https://www.neighborhoodatlas.medicine.[facility]/. Last address used for calculation Not on [...] on filedocumented in this encounter Care Teams Residential Tech Relationship Specialty Start Date End Date Lorie Díaz MD Referring Gastroenterology 03/05/19 documented as of this encounter
--- OUTSIDE RECORDS SUMMARY | 2025-08-15 10:48 | XMS_ITS | Encounter Summary ---
Author Organization [facility] Address [facility] [place] [address] Care Team Providers Care Bread Slicer Machine Name Role Phone Lorie Díaz MD Unavailable Source Comments In the event this information is protected by the Federal Confidentiality of Alcohol and Drug AbusePatient Records regulations: The Federal rules restrict any use of the information to criminally investigate or prosecute any alcohol or drug abuse patient.[facility] Encounter Details Date Type Department Care Team (Late st Contact Info) Description 01/03/2022 Get Medical Advice Gastroenterology [address] [place] [address] [facility] [place] [address] Appt Social History Tobacco Use Types Packs/Day Years [...] N ot on file 2020 Data from: https://www.neighborhoodatlas.medicine.[facility]/. Last address used for calculation Not on [...] on filedocumented in this encounter Care Teams Bread Slicer Machine Relationship Specialty Start Date End Date Lorie Díaz MD Referring Gastroenterology 03/05/19 documented as of this encounter
--- OUTSIDE RECORDS SUMMARY | 2025-08-15 10:48 | XMS_ITS | Encounter Summary ---
Author Organization [facility] Address [facility] [place] [address] Care Team Providers Care Technical Project Manager Name Role Phone Lorie Díaz MD Unavailable Source Comments In the event this information is protected by the Federal Confidentiality of Alcohol and Drug AbusePatient Records regulations: The Federal rules restrict any use of the information to criminally investigate or prosecute any alcohol or drug abuse patient.[facility] Encounter Details Date Type Department Care Team (Late st Contact Info) Description 12/31/2021 Patient Msg Gastroenterology [address] [place] [address] Provider, [facility] Appointment reminder Social History Tobacco [...] N ot on file 2020 Data from: https://www.neighborhoodatlas.medicine.[facility].edu/. Last address used for calculation Not on [...] on filedocumented in this encounter Care Teams Technical Project Manager Relationship Specialty Start Date End Date Lorie Díaz MD Referring Gastroenterology 03/05/19 documented as of this encounter
--- OUTSIDE RECORDS SUMMARY | 2025-08-15 10:48 | XMS_ITS | Encounter Summary ---
Author Organization [facility] Address [facility] [place] [address] Care Team Providers Care Aircraft Metalsmith Name Role Phone Lorie Díaz MD Unavailable Source Comments In the event this information is protected by the Federal Confidentiality of Alcohol and Drug AbusePatient Records regulations: The Federal rules restrict any use of the information to criminally investigate or prosecute any alcohol or drug abuse patient.[facility] Encounter Details Date Type Department Care Team (Late st Contact Info) Description 05/18/2021 Patient Msg Gastroenterology [address] [place] [phone] Tapan Magallanes MD [address] [place] [address] Follow u[ Social History Tobacco Use Types Packs/Day Years [...] N ot on file 2020 Data from: https://www.neighborhoodatlas.[facility]/. Last address used for calculation Not on [...] on filedocumented in this encounter Care Teams Aircraft Metalsmith Relationship Specialty Start Date End Date Lorie Díaz MD Referring Gastroenterology 03/05/19 documented as of this encounter
--- OUTSIDE RECORDS SUMMARY | 2025-08-15 10:48 | XMS_ITS | Encounter Summary ---
Author Organization [facility] Address [facility] [place] [address] Care Team Providers Care Food Order Expediter Name Role Phone Lorie Díaz MD Unavailable Source Comments In the event this information is protected by the Federal Confidentiality of Alcohol and Drug AbusePatient Records regulations: The Federal rules restrict any use of the information to criminally investigate or prosecute any alcohol or drug abuse patient.[facility] Encounter Details Date Type Department Care Team (Late st Contact Info) Description 10/14/2022 Patient Msg Gastroenterology [address] [place] [address] Provider, [facility] labs and virtual visit Social History Tobacco Use Types Packs/Day Years [...] N ot on file 2020 Data from: https://www.neighborhoodatlas.medicine.[facility].edu/. Last address used for calculation Not [...] on filedocumented in this encounter Care Teams Food Order Expediter Relationship Specialty Start Date End Date Lorie Díaz MD Referring Gastroenterology 03/05/19 documented as of this encounter
--- OUTSIDE RECORDS SUMMARY | 2025-08-15 10:48 | XMS_ITS | Encounter Summary ---
Author Organization [facility] Address [facility] [place] [address] Care Team Providers Care Pricing Supervisor Name Role Phone Lorie Díaz MD Unavailable Source Comments In the event this information is protected by the Federal Confidentiality of Alcohol and Drug AbusePatient Records regulations: The Federal rules restrict any use of the information to criminally investigate or prosecute any alcohol or drug abuse patient.[facility] Encounter Details Date Type Department Care Team (Late st Contact Info) Description 02/04/2022 Get Medical Advice Gastroenterology [address] [place] [address] Lisette Siddiqui MD [facility] [place] [address] Medication s Social History Tobacco Use Types Packs/Day Years [...] N ot on file 2020 Data from: https://www.neighborhoodatlas.[facility]/. Last address used for calculation Not [...] on filedocumented in this encounter Care Teams Pricing Supervisor Relationship Specialty Start Date End Date Lorie Díaz MD Referring Gastroenterology 03/05/19 documented as of this encounter
[2025-08-15 12:11] LABS: Estimated GFR (African America >60 (>=60 mL/min/1.73m^2); Estimated GFR (Non-African Ame >60 (>=60 mL/min/1.73m^2)
== END 2025-08-15 10:45 | disposition home or self-care (01) ==
LOC: LAB 10:44
PROVIDERS: PCP Family Medicine; Visit Provider Internal Medicine Infectious Disease
DX: A49.01 Methicillin susceptible Staphylococcus aureus infection, unspecified site (principal)
CPT/HCPCS: 36415; 82565; 86140

== ENCOUNTER 2025-08-22 10:31 | Outpatient (REF) | payer OTHER, SELFPAY ==
--- OUTSIDE RECORDS SUMMARY | 2025-08-22 10:35 | XMS_ITS | Encounter Summary ---
Author Organization [facility] Address [facility] [place] [address] Care Team Providers Care Director Supplier Quality Name Role Phone Lorie Díaz MD Unavailable Source Comments In the event this information is protected by the Federal Confidentiality of Alcohol and Drug AbusePatient Records regulations: The Federal rules restrict any use of the information to criminally investigate or prosecute any alcohol or drug abuse patient.[facility] Encounter Details Date Type Department Care Team (Late st Contact Info) Description 01/03/2022 Get Medical Advice Gastroenterology [address] [place] [address] Lisette Siddiqui MD [facility] [place] [address] Appt Social History Tobacco Use [...] N ot on file 2020 Data from: https://www.neighborhoodatlas.medicine.[facility]/. Last address used for calculation [...] filedocumented in this encounter Care Teams Director Supplier Quality Relationship Specialty Start Date End Date Lorie Díaz MD Referring Gastroenterology 03/05/19 documented as of this encounter
--- OUTSIDE RECORDS SUMMARY | 2025-08-22 10:35 | XMS_ITS | Encounter Summary ---
Author Organization [facility] Address [facility] [place] [id number] Care Team Providers Care Justice Court Deputy Clerk Name Role Phone Lorie Díaz MD Unavailable Source Comments In the event this information is protected by the Federal Confidentiality of Alcohol and Drug AbusePatient Records regulations: The Federal rules restrict any use of the information to criminally investigate or prosecute any alcohol or drug abuse patient.[facility] Encounter Details Date Type Department Care Team (Late st Contact Info) Description 12/04/2020 Get Medical Advice Gastroenterology [address] [place] [address] Lida Hammond PA-C [address] [place] [id number] RE: Visit Follow Up Question Social History [...] N ot on file 2020 Data from: https://www.neighborhoodatlas.medicine.[facility]/. Last address used for calculation Not on [...] on filedocumented in this encounter Care Teams Justice Court Deputy Clerk Relationship Specialty Start Date End Date Lorie Díaz MD Referring Gastroenterology 03/05/19 documented as of this encounter
--- OUTSIDE RECORDS SUMMARY | 2025-08-22 10:35 | XMS_ITS | Encounter Summary ---
Author Organization [facility] Address [facility] [place] [id number] Care Team Providers Care Bee Producer Name Role Phone Lorie Díaz MD Unavailable Source Comments In the event this information is protected by the Federal Confidentiality of Alcohol and Drug AbusePatient Records regulations: The Federal rules restrict any use of the information to criminally investigate or prosecute any alcohol or drug abuse patient.[facility] Encounter Details Date Type Department Care Team (Late st Contact Info) Description 02/07/2021 Get Medical Advice Gastroenterology [address] [place] [address] Lida Hammond PA-C [address] [place], [place] [phone] RE: Medication Question (Not Renewal) Social History [...] N ot on file 2020 Data from: https://www.neighborhoodatlas.medicine.[facility].edu/. Last address used for calculation Not [...] on filedocumented in this encounter Care Teams Bee Producer Relationship Specialty Start Date End Date Lorie Díaz MD Referring Gastroenterology 03/05/19 documented as of this encounter
--- OUTSIDE RECORDS SUMMARY | 2025-08-22 10:35 | XMS_ITS | Clinical Summary ---
Author Organization [facility] Healthcare Address [address] [place] [address] Care Team Providers Care Object Oriented Developer Name Role Phone Karolyn Cross MD Primary Care Provider Social History Tobacco Use Types Packs/Day Years [...] Narrative 09/06/2015 12:00 PM EDT PERFORMED AT [facility] LOCATION:[id number] Normal Procedure Note CONVERSION, GENERIC - 04/03/2023 PERFORMED AT [facility] LOCATION:[id number] Normal us Meera Bains MD ENDOSCOPY PROCEDURE ORDERABLE S Final Result from Last 3 Months or Most Recently Relevant to Health Maintenance Care Teams Object Oriented Developer Relationship Specialty Start Date End Date Karolyn Cross MD [address] [place] [address] PCP - General Family Medicine 08/03/25
--- OUTSIDE RECORDS SUMMARY | 2025-08-22 10:35 | XMS_ITS | Encounter Summary ---
Author Organization [facility] Address [facility] [place] [address] Care Team Providers Care Process Technician Name Role Phone Lorie Díaz MD Unavailable Source Comments In the event this information is protected by the Federal Confidentiality of Alcohol and Drug AbusePatient Records regulations: The Federal rules restrict any use of the information to criminally investigate or prosecute any alcohol or drug abuse patient.[facility] Encounter Details Date Type Department Care Team (Late st Contact Info) Description 02/16/2021 Patient Msg Gastroenterology [address] [phone] Tapan Magallanes MD [address] [place] [address] Follow up Social History Tobacco [...] N ot on file 2020 Data from: https://www.neighborhoodatlas.medicine.[facility]/. Last address used for calculation [...] on filedocumented in this encounter Care Teams Process Technician Relationship Specialty Start Date End Date Lorie Díaz MD Referring Gastroenterology 03/05/19 documented as of this encounter
--- OUTSIDE RECORDS SUMMARY | 2025-08-22 10:35 | XMS_ITS | Encounter Summary ---
Author Organization [facility] Address [facility] [place] [address] Care Team Providers Care Medical Technician Name Role Phone Lorie Díaz MD Unavailable Source Comments In the event this information is protected by the Federal Confidentiality of Alcohol and Drug AbusePatient Records regulations: The Federal rules restrict any use of the information to criminally investigate or prosecute any alcohol or drug abuse patient.[facility] Encounter Details Date Type Department Care Team (Late st Contact Info) Description 05/08/2020 Get Medical Advice Gastroenterology [address] [phone] Tapan Espinal MD [facility] [place] [address] RE: Test Result Question Social [...] filedocumented in this encounter Care Teams Medical Technician Relationship Specialty Start Date End Date Lorie Díaz MD Referring Gastroenterology 03/05/19 documented as of this encounter
--- OUTSIDE RECORDS SUMMARY | 2025-08-22 10:35 | XMS_ITS | Encounter Summary ---
Author Organization [facility] Address [facility] [place] [address] Care Team Providers Care Trial Lawyer Name Role Phone Lorie Díaz MD Unavailable Source Comments In the event this information is protected by the Federal Confidentiality of Alcohol and Drug AbusePatient Records regulations: The Federal rules restrict any use of the information to criminally investigate or prosecute any alcohol or drug abuse patient.[facility] Encounter Details Date Type Department Care Team (Late st Contact Info) Description 02/15/2021 Get Medical Advice Gastroenterology [address] [address] Tapan Espinal MD [address] [place] [address] Medication Question (Not Renewal) Social [...] ot on file 2020 Data from: https://www.neighborhoodatlas.medicine.[facility].edu/. Last address used for calculation [...] on filedocumented in this encounter Care Teams Trial Lawyer Relationship Specialty Start Date End Date Lorie Díaz MD Referring Gastroenterology 03/05/19 documented as of this encounter
--- OUTSIDE RECORDS SUMMARY | 2025-08-22 10:35 | XMS_ITS | Encounter Summary ---
Author Organization [facility] Address [facility] [place] [address] Care Team Providers Care Medical Imaging Technician Name Role Phone Lorie Díaz MD Unavailable Source Comments In the event this information is protected by the Federal Confidentiality of Alcohol and Drug AbusePatient Records regulations: The Federal rules restrict any use of the information to criminally investigate or prosecute any alcohol or drug abuse patient.[facility] Encounter Details Date Type Department Care Team (Late st Contact Info) Description 02/04/2022 Get Medical Advice Gastroenterology [address] [place] [address] Lisette Siddiqui MD [facility] [place] [address] Medication s Social History Tobacco [...] N ot on file 2020 Data from: https://www.neighborhoodatlas.[facility]/. Last address used for calculation [...] filedocumented in this encounter Care Teams Medical Imaging Technician Relationship Specialty Start Date End Date Lorie Díaz MD Referring Gastroenterology 03/05/19 documented as of this encounter
--- OUTSIDE RECORDS SUMMARY | 2025-08-22 10:35 | XMS_ITS | Encounter Summary ---
Author Organization [facility] Address [facility] [place] [address] Care Team Providers Care News Assignment Editor Name Role Phone Lorie Díaz MD Unavailable Source Comments In the event this information is protected by the Federal Confidentiality of Alcohol and Drug AbusePatient Records regulations: The Federal rules restrict any use of the information to criminally investigate or prosecute any alcohol or drug abuse patient.[facility] Encounter Details Date Type Department Care Team (Late st Contact Info) Description 02/16/2021 Get Medical Advice Gastroenterology [address] [address] Tapan Espinal MD [address] [place] [address] Medication Question (Not Renewal) Social [...] on file 2020 Data from: https://www.neighborhoodatlas.medicine.[facility].edu/. Last address used for calculation Not on [...] on filedocumented in this encounter Care Teams News Assignment Editor Relationship Specialty Start Date End Date Lorie Díaz MD Referring Gastroenterology 03/05/19 documented as of this encounter
--- OUTSIDE RECORDS SUMMARY | 2025-08-22 10:35 | XMS_ITS | Encounter Summary ---
Author Organization [facility] Address [facility] [place] [address] Care Team Providers Care Corrections Sergeant Name Role Phone Lorie Díaz MD Unavailable Source Comments In the event this information is protected by the Federal Confidentiality of Alcohol and Drug AbusePatient Records regulations: The Federal rules restrict any use of the information to criminally investigate or prosecute any alcohol or drug abuse patient.[facility] Encounter Details Date Type Department Care Team (Late st Contact Info) Description 01/14/2020 Get Medical Advice Gastroenterology [address] [facility] [place] [address] RE: Non-Urgent Medical Question Social [...] on filedocumented in this encounter Care Teams Corrections Sergeant Relationship Specialty Start Date End Date Lorie Díaz MD Referring Gastroenterology 03/05/19 documented as of this encounter
--- OUTSIDE RECORDS SUMMARY | 2025-08-22 10:35 | XMS_ITS | Encounter Summary ---
Author Organization [facility] Address [facility] [place] [address] Care Team Providers Care Paper Cup Handle Machine Operator Name Role Phone Lorie Díaz MD Unavailable Source Comments In the event this information is protected by the Federal Confidentiality of Alcohol and Drug AbusePatient Records regulations: The Federal rules restrict any use of the information to criminally investigate or prosecute any alcohol or drug abuse patient.[facility] Encounter Details Date Type Department Care Team (Late st Contact Info) Description 02/07/2023 Patient Msg Gastroenterology [address] [place] [address] Provider, [facility] Appointments Social History Tobacco Use [...] N ot on file 12/12/2022 Data from: https://www.neighborhoodatlas.medicine.[facility].edu/. Last address used for calculation [address] [facility] 12/12/2022 Sex and Gender Information Value Date Recorded Sex Assigned at Not on file Legal Sex Male 9:43 AM EST Gender Identity Not on file Sexual Orientation Not on file documented as of this encounter Plan of Treatment Not on file documented as of this encounter Visit Diagnoses Not on filedocumented in this encounter Care Teams Paper Cup Handle Machine Operator Relationship Specialty Start Date End Date Lorie Díaz MD Referring Gastroenterology 03/05/19 documented as of this encounter
--- OUTSIDE RECORDS SUMMARY | 2025-08-22 10:35 | XMS_ITS | Clinical Summary ---
Author Organization [facility] Address [address] [place], [place] [id number] Care Team Providers Care Straw Hat Brusher Name Role Phone Lorie Díaz MD Unavailable [...] N ot on file 12/12/2022 Data from: https://www.neighborhoodatlas.medicine.[facility].edu/. Last address used for calculation [address] [facility] 12/12/2022 Sex and Gender Information [...] of 2) 2014 Lipid Screening 06/25/2024 06/25/2019 Covid-19 Vaccine (4 - 2024-2 6 season) 2025 09/12/2021, 02/27/2021, 01/30/2021 Influenza Vaccine (#1) 2025 10/20/2012 Diabetes Screening 07/16/2028 07/16/2025, 0 07/06/2025, 06/13/2025, Additional history exists RSV Vaccine (1 - 1-dose 75+ series) 2039 Hepatitis C Screening Completed 06/13/2025, 019 Medical Devices Implanted Type Area [employer] [facility] Specialist Device Identifier Shelf Expiration Date Model / [...] PM EDT Images were obtained outside of [facility] Procedure Note Provider, [facility] [place] - 07/28/2025 Images were obtained outside of [facility] Cc Provider RADIOLOGY Final Result * (ABNORMAL) LIPID PANEL BASIC (06/25/2019 12:02 PM EDT) Cholesterol, Total 242(H) <200 mg/dL 06/25/2019 3:10 PM EDT [facility] Comment: <200 mg/dL, Desirable 200-239 mg/dL, Borderline high >239 mg/dL, High Triglyceride 95 <150 mg/dL 06/25/2019 3:10 PM EDT [facility] Comment: <150 mg/dL, Normal 150-199 mg/dL, Borderline high 200-499 mg/dL, High >499 mg/dL, Very high HDL Cholesterol 89 >39 mg/dL 9 3:10 PM EDT [facility]ge Comment: 40-59 mg/dL, Acceptable >59 mg/dL, High: Negative risk factor for coronary heart disease <40 mg/dL, Low: Positive risk factor for coronary heart disease LDL Cholesterol, Calculated 134(H) <100 mg/dL 06/25/2019 3:10 PM EDT [facility] Comment: <100 mg/dL, Optimal 100-129 mg/dL, Near optimal/above optimal 130-159 mg/dL, Borderline high 160-189 mg/dL, High >189 mg/dL, Very high Secondary prevention optimal LDL Cholesterol levels are recommended to be < 70 mg/dL Non HDL Cholesterol 153(H) <130 mg/dL 06/25/2019 3:10 PM EDT [facility] Comment: <130 mg/dL, Optimal 130-159 mg/dL, Near optimal/above optimal 160-189 mg/dL, Borderline high 190-219 mg/dL, High >219 mg/dL, Very high Secondary prevention optimal non HDL Cholesterol levels are recommended to be < 100 mg/dL Fasting Time Unknown hrs 06/25/2019 2:39 PM EDT [facility] VLDL Cholesterol 19 <30 mg/dL 06/25/20 19 3:10 PM EDT [facility] TC:HDL Ratio 2.72 <5.10 06/25/2019 3:10 PM EDT [facility] LDL:HDL Ratio 1.51 <2.54 06/25/2019 3:10 PM EDT [facility] Comment: Reference: 1. National Cholesterol Education Program ATP III Guideline At-A-Glance Quick Desk Reference: National Heart, Lung, and Blood [place]. National Institutes of Health. 2001: NIH Publication No. 01-3305. 2. An International Atherosclerosis Society position paper: global recommendations for the management of dyslipidemia: executive summary, Atherosclerosis. 2014: 232(2):410-413. 06/25/2019 12:0 2 PM EDT 06/25/2019 1:34 PM EDT us Physician Interface LABORATORY Final Result [facility] [address] [facility] [place] [address] [facility] [address] [place] [address] from Last 3 Months or Most Recently Relevant to Health Maintenance Insurance [employer] Care Teams Straw Hat Brusher Relationship Specialty Start Date End Date Lorie Díaz MD Referring Gastroenterology 03/05/19
--- OUTSIDE RECORDS SUMMARY | 2025-08-22 10:35 | XMS_ITS | Encounter Summary ---
Author Organization [facility] Address [address] [place] [address] Care Team Providers Care Actuary Name Role Phone Lorie Díaz MD Unavailable Source Comments In the event this information is protected by the Federal Confidentiality of Alcohol and Drug AbusePatient Records regulations: The Federal rules restrict any use of the information to criminally investigate or prosecute any alcohol or drug abuse patient.[facility] Encounter Details Date Type Department Care Team (Late st Contact Info) Description 11/18/2022 Patient Msg Gastroenterology [address] [place] [address] Lisette Siddiqui MD [facility] [place] [address] Please have labs drawn Social [...] N ot on file 2020 Data from: https://www.neighborhoodatlas.[facility]/. Last address used for calculation Not on [...] disease documented in this encounter Care Teams Actuary Relationship Specialty Start Date End Date Lorie Díaz MD Referring Gastroenterology 03/05/19 documented as of this encounter
--- OUTSIDE RECORDS SUMMARY | 2025-08-22 10:35 | XMS_ITS | Encounter Summary ---
Author Organization [facility] Address [address] [place] [address] Care Team Providers Care Expeditionary Fighting Vehicle Crewman Name Role Phone Lorie Díaz MD Unavailable Source Comments In the event this information is protected by the Federal Confidentiality of Alcohol and Drug AbusePatient Records regulations: The Federal rules restrict any use of the information to criminally investigate or prosecute any alcohol or drug abuse patient.[facility] Encounter Details Date Type Department Care Team (Late st Contact Info) Description 02/15/2022 Patient Msg Gastroenterology [address] [place] [address] Lisette Siddiqui MD [facility] [place] [address] Reminder to have labs drawn [...] N ot on file 2020 Data from: https://www.neighborhoodatlas.medicine.[facility].edu/. Last address used for calculation Not [...] on filedocumented in this encounter Care Teams Expeditionary Fighting Vehicle Crewman Relationship Specialty Start Date End Date Lorie Díaz MD Referring Gastroenterology 03/05/19 documented as of this encounter
--- OUTSIDE RECORDS SUMMARY | 2025-08-22 10:35 | XMS_ITS | Encounter Summary ---
Author Organization [facility] Address [facility] [place] [address] Care Team Providers Care Early Childhood Director Name Role Phone Lorie Díaz MD Unavailable Source Comments In the event this information is protected by the Federal Confidentiality of Alcohol and Drug AbusePatient Records regulations: The Federal rules restrict any use of the information to criminally investigate or prosecute any alcohol or drug abuse patient.[facility] Encounter Details Date Type Department Care Team (Late st Contact Info) Description 12/31/2021 Patient Msg Gastroenterology [address] [place] [address] Provider, [facility] Appointment reminder Social History Tobacco [...] N ot on file 2020 Data from: https://www.neighborhoodatlas.medicine.[facility].edu/. Last address used for calculation Not on [...] on filedocumented in this encounter Care Teams Early Childhood Director Relationship Specialty Start Date End Date Lorie Díaz MD Referring Gastroenterology 03/05/19 documented as of this encounter
--- OUTSIDE RECORDS SUMMARY | 2025-08-22 10:35 | XMS_ITS | Encounter Summary ---
Author Organization [facility] Address [address] [place] [address] Care Team Providers Care Enterprise Records Analyst Name Role Phone Lorie Díaz MD Unavailable Source Comments In the event this information is protected by the Federal Confidentiality of Alcohol and Drug AbusePatient Records regulations: The Federal rules restrict any use of the information to criminally investigate or prosecute any alcohol or drug abuse patient.[facility] Encounter Details Date Type Department Care Team (Late st Contact Info) Description 01/01/2022 Patient Msg Gastroenterology [address] [place] [address] Lisette Siddiqui MD [facility] [address] Contact information Social History Tobacco [...] N ot on file 2020 Data from: https://www.neighborhoodatlas.medicine.[facility]/. Last address used for [...] filedocumented in this encounter Care Teams Enterprise Records Analyst Relationship Specialty Start Date End Date Lorie Díaz MD Referring Gastroenterology 03/05/19 documented as of this encounter
--- OUTSIDE RECORDS SUMMARY | 2025-08-22 10:35 | XMS_ITS | Encounter Summary ---
Author Organization [facility] Address [facility] [place] [address] Care Team Providers Care Flooring Salesperson Name Role Phone Lorie Díaz MD Unavailable Source Comments In the event this information is protected by the Federal Confidentiality of Alcohol and Drug AbusePatient Records regulations: The Federal rules restrict any use of the information to criminally investigate or prosecute any alcohol or drug abuse patient.[facility] Encounter Details Date Type Department Care Team (Late st Contact Info) Description 10/14/2022 Patient Msg Gastroenterology [address] [place] [address] Provider, [facility] labs and virtual visit Social [...] N ot on file 2020 Data from: https://www.neighborhoodatlas.medicine.[facility].edu/. Last address used for calculation Not on [...] on filedocumented in this encounter Care Teams Flooring Salesperson Relationship Specialty Start Date End Date Lorie Díaz MD Referring Gastroenterology 03/05/19 documented as of this encounter
--- OUTSIDE RECORDS SUMMARY | 2025-08-22 10:35 | XMS_ITS | Encounter Summary ---
Author Organization [facility] Address [facility] [place] [address] Care Team Providers Care Surgical Corsetier Name Role Phone Lorie Díaz MD Unavailable Source Comments In the event this information is protected by the Federal Confidentiality of Alcohol and Drug AbusePatient Records regulations: The Federal rules restrict any use of the information to criminally investigate or prosecute any alcohol or drug abuse patient.[facility] Encounter Details Date Type Department Care Team (Late st Contact Info) Description 05/08/2020 Get Medical Advice Gastroenterology [address] [phone] Tapan Espinal MD [facility] [place] [address] RE: Test Result Question Social [...] on filedocumented in this encounter Care Teams Surgical Corsetier Relationship Specialty Start Date End Date Lorie Díaz MD Referring Gastroenterology 03/05/19 documented as of this encounter
--- OUTSIDE RECORDS SUMMARY | 2025-08-22 10:35 | XMS_ITS | Encounter Summary ---
Author Organization [facility] Address [facility] [place] [address] Care Team Providers Care Aviation Operations Specialist Name Role Phone Lorie Díaz MD Unavailable Source Comments In the event this information is protected by the Federal Confidentiality of Alcohol and Drug AbusePatient Records regulations: The Federal rules restrict any use of the information to criminally investigate or prosecute any alcohol or drug abuse patient.[facility] Encounter Details Date Type Department Care Team (Late st Contact Info) Description 01/19/2023 Patient Msg Gastroenterology [address] [place] [address] Provider, [facility] Appointment reminder Social History Tobacco [...] N ot on file 12/12/2022 Data from: https://www.neighborhoodatlas.medicine.[facility].edu/. Last address used for calculation [address] [facility] 12/12/2022 Sex and Gender Information Value Date Recorded Sex Assigned at Not on file Legal Sex Male 9:43 AM EST Gender Identity Not on file Sexual Orientation Not on file documented as of this encounter Plan of Treatment Not on file documented as of this encounter Visit Diagnoses Not on filedocumented in this encounter Care Teams Aviation Operations Specialist Relationship Specialty Start Date End Date Lorie Díaz MD Referring Gastroenterology 03/05/19 documented as of this encounter
--- OUTSIDE RECORDS SUMMARY | 2025-08-22 10:35 | XMS_ITS | Encounter Summary ---
Author Organization [facility] Address [facility] [place] [address] Care Team Providers Care Kettle Operator Head Name Role Phone Lorie Díaz MD Unavailable Source Comments In the event this information is protected by the Federal Confidentiality of Alcohol and Drug AbusePatient Records regulations: The Federal rules restrict any use of the information to criminally investigate or prosecute any alcohol or drug abuse patient.[facility] Encounter Details Date Type Department Care Team (Late st Contact Info) Description 05/18/2021 Patient Msg Gastroenterology [address] [phone] Taapn Magallanes MD [address] [place] [address] Follow u[ Social History Tobacco [...] N ot on file 2020 Data from: https://www.neighborhoodatlas.[facility]/. Last address used for calculation Not [...] on filedocumented in this encounter Care Teams Kettle Operator Head Relationship Specialty Start Date End Date Lorie Díaz MD Referring Gastroenterology 03/05/19 documented as of this encounter
[2025-08-22 11:15] LABS: Estimated GFR (African America >60 (>=60 mL/min/1.73m^2); Estimated GFR (Non-African Ame >60 (>=60 mL/min/1.73m^2)
== END 2025-08-22 10:32 | disposition home or self-care (01) ==
LOC: LAB 10:31
PROVIDERS: PCP Family Medicine; Visit Provider Internal Medicine Infectious Disease
DX: A49.01 Methicillin susceptible Staphylococcus aureus infection, unspecified site (principal); R78.81 Bacteremia; K75.4 Autoimmune hepatitis
CPT/HCPCS: 36415; 82565; 86140